=== PATIENT | female | born 1970 | race Caucasian/White ===

== ENCOUNTER 2021-03-16 15:03 | Outpatient (REF) | payer SELFPAY ==
[2021-03-16 17:47] LABS: MANUAL DIFF FLAG NO
[2021-03-16 17:52] LABS: Basophils Percent Auto 0.3 % (0-2); Eosinophils Absolute Auto 0.4 X10*3/uL (0.0-0.4); Eosinophils Percent Auto 4.6 % (0-4); Hematocrit 38.3 % (37-47); Hemoglobin 12.4 g/dl (12.0-16.0); Imm Gran Abs Auto 0.03 X10*3/uL (0.00-0.03); Imm Gran Pct Auto 0.3 % (0.0-0.4); Lymphocytes Absolute Auto 1.8 X10*3/uL (1.2-4.9); Lymphocytes Percent Auto 19.4 % (20-40); Mean Corpuscular HGB Conc 32.4 g/dl (31.0-35.0); Mean Corpuscular Hemoglobin 25.8 pg (27.0-33.0); Mean Corpuscular Volume 79.6 fL (80-98); Mean Platelet Volume 9.5 fL (9.4-12.3); Monocytes Absolute Auto 0.8 X10*3/uL (0.1-1.2); Monocytes Percent Auto 8.3 % (2-11); Neutrophils Absolute Auto 6.1 X10*3/uL (2.0-8.3); Neutrophils Percent Auto 67.1 % (45-73); Platelet Count 362 X10*3/uL (160-400); Red Blood Count 4.81 X10*6/uL (4.20-5.50); Red Cell Distribution Width 15.9 % (11.0-16.0); White Blood Count 9.1 X10*3/uL (4.8-10.8)
[2021-03-16 18:11] LABS: Anion Gap 13 (12-20); Blood Urea Nitrogen 20 mg/dL (9-16); Calcium 9.5 mg/dL (8.4-10.2); Carbon Dioxide 22 mmol/L (22-29); Chloride 108 mmol/L (96-108); Cholesterol 117 mg/dL; Creatinine Urine 91.54 mg/dL; Estimated Glomerular Filt Rate 23; HDL Cholesterol 44 mg/dL; Iron 59 mcg/dL (30-160); LDL Cholesterol Calculated 57 mg/dl; Magnesium 2.3 mg/dL (1.6-2.6); Microalbum/Creatinine Ratio Ur 223.9 ug/mg cr; Percent Iron Saturation 18 % (15-50); Phosphorus 2.8 mg/dL (2.7-4.5); Potassium 2.6 mmol/L (3.3-5.1); Sodium 140 mmol/L (135-145); Total Iron Binding Capacity 324 mcg/dL (228-428); Triglycerides 84 mg/dL; Unsaturated Iron Binding 265 ug/dL; Uric Acid 3.1 mg/dL (2.4-5.7)
[2021-03-16 18:21] LABS: Glucose Urine UA 250 MG/DL (NEG); Leukocyte Esterase Urine NEG (NEG); Nitrite Urine NEG (NEG); PH 6.5 (5.0-8.0); Specific Gravity - Urine 1.025 (1.005-1.025); Urine Blood 2+ (NEG); Urine Ketones NEG (NEG); Urine Protein 2+ MG/DL (NEG-TRACE)
[2021-03-16 18:24] LABS: Ferritin 169 ng/mL (10-250)
[2021-03-16 18:26] LABS: Appearance Urine HAZY; Color Urine YELLOW
[2021-03-16 18:40] LABS: Bacteria Urine TRACE /LPF; Mucus Urine 2+ /LPF; RBC Urine 0-2 /HPF (0); Squamous Epithelial Cell Urine 3+ /LPF; WBC Urine 0 /HPF (0-4)
[2021-03-21 06:31] LABS: Calcium (PTHI) 9.4 mg/dL (8.6-10.4); PTHI 40 pg/mL (14-64)
== END 2021-03-16 15:04 | disposition home or self-care (01) ==
LOC: HO.HMGCLDS 15:03
PROVIDERS: PCP Internal Medicine; Visit Provider Internal Medicine Nephrology
DX: I10 Essential (primary) hypertension (principal)
CPT/HCPCS: 36415; 80051; 80061; 81001; 82043; 82310; 82565; 82728; 83540; 83735; 83970; 84100; 84520; 84550; 85025

== ENCOUNTER 2023-11-17 11:10 | Outpatient (AMB) | payer OTHER, SELFPAY ==
--- NOTE | 2023-11-17 11:12 | AM.OFFWIN_ITS ---
Intake Vital Signs 11/17/23 11:18 Height 5 ft 2 in Weight 203 lb BMI 37.1 BP 114/82 Blood Pressure Location Lt brachial Position Sitting Pulse 98 Pulse Source Pulse Oximeter Temp 98.2 F Temp Source Oral Pulse Oximetry (%) 97 Oxygen Delivery Method Room Air Intake Visit Reasons: EP tingling in head UTI inflammation in legs Intake Note: Pt presents to the office today for c/o inflammation in her knees,legs,feet. She states she also has tingling in the top of her head. She states this all has been going on for the past year or longer. She also is questioning a UTI due to cloudiness. Patient Tobacco Use Status: Never used Tobacco Allergies No Known Allergies [No Known Allergies*] Allergy (Unverified 11/17/23 11:21) Environmental Allergies Allergy (Unknown, Uncoded 11/17/23 11:21) Difficulty Breathing Mold Allergy (Unknown, Uncoded 11/17/23 11:21) Difficulty Breathing mold Allergy (Unknown, Uncoded 11/17/23 11:21) Difficulty Breathing HPI HPI Comments History of Present Illness Details 53 y/o female patient who presents to [facility] in clinic with c/o Urinary symptoms. Pt has h/o CKD and currently being followed by [facility] Nephrology. Reports getting frequent UTIs due to her Kidney disease. Pt also c/o bilateral knee pain since June. Reports had bilateral small toes fracture , now this is causing her knees to hurt. [facility] Social History Patient Tobacco Use Status: Never used Tobacco Review of Systems Const All systems reviewed & are unremarkable except as noted in HPI and below Physical Exam Vital Signs: Last Vital Signs Temp 98.2 F 11/17/23 11:18 Pulse 98 11/17/23 11:18 BP 114/82 11/17/23 11:18 Pulse Ox 97 11/17/23 11:18 Oxygen Delivery Method Room Air 11/17/23 11:18 BMI result Body Mass Index 37.1 Const General: comfortable and no acute distress Nutritional Appearance: obese Orientation/consciousness: patient oriented x3 Neuro General: patient oriented x3, gait normal and moves all extremities Extrem Other: Patient is wearing tight pants and closed toe shoes with out discomfort. Bilateral knees normal, no swelling or tenderness. General: Yes normal to inspection and Yes full ROM Right lower extremity: knee Details: normal to inspection and normal ROM; no tenderness and no swelling Left lower extremity: knee Details: normal to inspection and normal ROM; no tenderness and no swelling Psych Speech and movement: Normal speech and movement present Results AMB Urinalysis, Automated UA Leukoctes 15 Bree/uL Last Edit by Alana Griffin CMA on 11/17/23 11:27 UA Nitrite Negative Last Edit by Alana Griffin CMA on 11/17/23 11:27 UA Urobilinogen 0.2 mg/dL Last Edit by Alana Griffin CMA on 11/17/23 11:27 UA Protein 100 mg/dL Last Edit by Alana Griffin CMA on 11/17/23 11:27 UA pH 6.0 Last Edit by Alana Griffin CMA on 11/17/23 11:27 UA Blood 80 Sabas/uL Last Edit by Alana Griffin CMA on 11/17/23 11:27 UA Specific [place] 1.015 Last Edit by Alana Griffin CMA on 11/17/23 11:27 UA Ketone Negative Last Edit by Alana Griffin CMA on 11/17/23 11:27 UA Bilirubin 0 mg/dL Last Edit by Alana Griffin CMA on 11/17/23 11:27 UA Glucose 500 mg/dL Last Edit by Alana Griffin CMA on 11/17/23 11:27 Results Reviewed Results Reviewed: Laboratory Last Values Urine pH (Auto) 6.0 11/17/23 11:26 Specific [place] (Auto) 1.015 11/17/23 11:26 Urine Protein (Auto) 100 mg/dL 11/17/23 11:26 Glucose (UA)(Auto) 500 mg/dL 11/17/23 11:26 Urine Ketones (Auto) Negative 11/17/23 11:26 Urine Blood (Auto) 80 [place]/uL 11/17/23 11:26 Urine Nitrite (Auto) Negative 11/17/23 11:26 Urine Bilirubin (Auto) 0 mg/dL 11/17/23 11:26 Urine Urobilinogen (Auto) 0.2 mg/dL 11/17/23 11:26 Leukocyte Esterase (Auto) 15 Bree/uL 11/17/23 11:26 Assessment & Plan Assessment & Plan (1) Urinary tract infection symptoms: Code(s): R39.9 - Unspecified symptoms and signs involving the genitourinary system Plan: - Sent urine for UA and culture - F/U with your Nephrology (2) Osteoarthritis of knees, bilateral: Code(s): M17.0 - Bilateral primary osteoarthritis of knee Qualifiers: Osteoarthritis type: unspecified Qualified Code(s): M17.0 - Bilateral primary osteoarthritis of knee Plan: No swelling or edema of both knees, non tender. Ordered PT F/U with PCP. Orders: Orders AMB Urinalysis Automated Today Z13.9 - Encounter for screening, unspecified UA CC w/rflx Micro + Cult Today R39.9 - Unspecified symptoms and signs involving the genitourinary system PT Evaluation and Treatment Today M17.0 - Bilateral primary osteoarthritis of knee Coding Level of Care Code Est Pt Level 3 (55726) Diagnoses Urinary tract infection symptoms R39.9 Osteoarthritis of both knees, unspecified osteoarthritis type M17.0 Osteoarthritis type: unspecified Time Spent (min) 15
[2023-11-17 11:18] VITALS: BP 114/82; PULSE 98; TEMP 36.8; O2SAT 97; BMI 37.1
== END 2023-11-17 11:56 | disposition home or self-care (01) ==
PROVIDERS: PCP Internal Medicine; Visit Provider Nurse Practitioner Family
DX: R39.9 Unspecified symptoms and signs involving the genitourinary system (principal); M17.0 Bilateral primary osteoarthritis of knee
CPT/HCPCS: 81003; 99213

== ENCOUNTER 2023-11-17 11:46 | Outpatient (REF) | payer OTHER, SELFPAY ==
[2023-11-17 13:20] LABS: Appearance Urine Cloudy; Color Urine Yellow; Glucose Urine UA 500 mg/dL (Negative); Leukocyte Esterase Urine Moderate (2+) (Negative); Nitrite Urine Positive (Negative); PH 6.5 (5.0-9.0); Specific Gravity - Urine 1.015 (1.005-1.025); UMIC TRIGGER UACC YES; Urine Blood Small (1+) (Negative); Urine Ketones Trace mg/dL (Negative); Urine Protein 100 (2+) mg/dL (Neg-Trace)
[2023-11-17 13:35] LABS: Bacteria Urine 4+ (None Seen); Hyaline Casts Urine 0-2 /LPF (0-2); RBC Urine 0-2 /HPF (0-2); UACC Culture Trigger YES; WBC Urine >50 /HPF (0-5)
== END 2023-11-17 11:47 | disposition home or self-care (01) ==
LOC: HO.LAB 11:46
PROVIDERS: Visit Provider Nurse Practitioner Family
DX: R39.9 Unspecified symptoms and signs involving the genitourinary system (principal)
CPT/HCPCS: 81001; 87086; 87088; 87186

== ENCOUNTER 2023-12-20 14:01 | Outpatient (AMB) | payer OTHER, SELFPAY ==
[2023-12-20 14:04] VITALS: BP 146/80; PULSE 87; O2SAT 100; BMI 36.3
--- NOTE | 2023-12-20 14:04 | A.OFFPC_ITS ---
Vital Signs 3 12/20/23 14:04 Height 5 ft 2 in Weight 198 lb 4 oz BMI 36.3 BP 146/80 H Blood Pressure Location Lt brachial Position Sitting Pulse 87 Pulse Source Pulse Oximeter Pulse Oximetry (%) 100 Oxygen Delivery Method Room Air Intake Visit Reasons: Re Est care Allergies No Known Allergies [No Known Allergies*] Allergy (Verified 12/20/23 14:04) Environmental Allergies Allergy (Unknown, Uncoded 11/17/23 11:21) Difficulty Breathing Mold Allergy (Unknown, Uncoded 11/17/23 11:21) Difficulty Breathing mold Allergy (Unknown, Uncoded 11/17/23 11:21) Difficulty Breathing Medication List - Last Reconciled 12/20/23 by Jacky Vallejo MD potassium chloride mEq PO sodium bicarbonate 20 mg PO BID Tobacco use date assessed: 12/20/23 Dental Screening Dental Screen Date: 12/20/23 Did you have a dental visit in the last 12 months?: No Did you have a dental problem in the last 6 months where you did not have access to dental care?: No Was dental information given to patient?: No HPI Re Est care 2 HPI0 Details Patient is a 50-year-old female who was last seen in 2017 came in today for reestablish care. Patient have chronic kidney disease, she saw Nephrology Dr. Menon in 2020, also after her visit in 2017. 2017 her creatinine was 1.68 and it was 2.26 at her labs March of 2021 She verbalized to continued to take Cozaar and hydrochlorothiazide She has longstanding history of hypertension Her blood pressure was 132/64 at Nephrology office with pulse of 103 and pulse ox of 97% She also have albuminuria She was diagnosed with chronic kidney disease stage 4 in 2020 Today her blood pressure is 146/80 Patient says that she has a blood pressure monitor at home and she is checking it She will bring the monitor with her at her next visit so we can calibrate it. Next appointment with Dr. Menon is not until March, last time she saw him was September of this year I do not have that consultation report. I have ordered labs to be done fasting Mammogram order placed she is due Patient also is requesting a dietitian consultation, we will address that Last time she had labs in September her GFR was 28 She also need an appointment for eye exam for regular checkup BMI is elevated patient is trying to lose weight She is having symptom of acid reflux, and took Prilosec with some relief but she has not taking it regularly I have sent omeprazole script patient was instructed to start taking 1 at night with a sip of water, and controlled the diet avoid spicy and fried food Complaining of pain both knees She also fell in June and then again in August tripped and injured her does which were very painful initially but now feeling better I have ordered x-rays of her knees and her feet to further evaluate She has not order for physical therapy for her knee pain and she will book the appointment She will return in 2 or 3 weeks for physical exam [facility] Social History Housing: House Patient Tobacco Use Status: Never used Tobacco e-Cigarette/Vaping Use: Never Used service: No Current occupational status: employed Current occupational exposures/hazards: No Cognitive needs: No Hearing needs: No Vision needs: No Questionnaire PHQ-9 Over the last 2 weeks, how often have you been bothered by any of the following problems? 1. Little interest or pleasure in doing things: not at all 2. Feeling down, depressed, or hopeless: not at all 3. Trouble falling or staying asleep, or sleeping too much: nearly every day 4. Feeling tired or having little energy: several days 5. Poor appetite or overeating: several days 6. Feeling bad about yourself - or that you are a failure or have let yourself or your family down: not at all 7. Trouble concentrating on things, such as reading the newspaper or watching television: several days 8. Moving or speaking so slowly that other people could have noticed. Or the opposite - being so fidgety or restless that you have been moving around a lot more than usual: not at all 9. Thoughts that you would be better off or of hurting yourself in some way: not at all Total score: 6 Depression Screening Interpretation: Negative Depression Screening Done: Yes 04017 - PHQ-9 Billing: Yes Source: Developed by Drs. Miah Hanley, Asia Norman, Gabriel Thorpe and colleagues, with an educational reza from [employer]. Thrive Questionnaire Date Thrive assessed: 12/20/23 I am a: Patient What is your living situation today?: I have a steady place to live Within the past 12 months, did the food you bought not last and you didn't have the money to get more?: Never true Within the past 12 months, did you worry whether your food would run out before you got money to buy more?: Never true Do you have trouble paying for medicines?: No Do you have trouble getting transportation to medical appointments?: No Do you have trouble paying your heating and electricity bill?: No Do you have trouble taking care of your child, family member or friend?: No Do you have trouble with day-to-day activities such as bathing, preparing meals, shopping, managing finances, etc.?: No Are you currently unemployed and looking for a job?: No Are you interested in more education?: No Please select the resources that you would like help with: None Currently or been in a relationship where the following occur: no concerns reported THRIVE Score: 0 AUDIT C Alcohol Use Questionnaire (AUDIT-C) 1. How often do you have a drink containing alcohol?: Never 3. How often do you have six or more drinks on one occasion?: Never Total Score: 0 Score Reviewed/Action Taken: Yes JESUS-7 AMB Questionnaire JESUS-7 Date JESUS - 7 assessed: 12/20/23 Feeling nervous, anxious, or on edge: 0 = Not at all Not being able to stop or control worryin = Not at all Worrying too much about different things: 0 = Not at all Trouble relaxin = Not at all Being so restless that it is hard to sit still: 0 = Not at all Becoming easily annoyed or irritable: 0 = Not at all Feeling afraid as if something awful might happen: 0 = Not at all Total JESUS-7 score (0-4 normal; 5-9 mild; 10-14 moderate; 15-21 severe): 0 Source: Developed by Drs. Miah Hanley, Asia Norman, Gabriel Thorpe and colleagues, with an educational reza from [employer]. JESUS-7 Assessment Billing JESUS-7 Assessment Tool: JESUS-7 Assessment 78943 Review of Systems Const Denies chills and Denies fever(s) ENT Denies epistaxis and Denies nasal discharge Card Denies chest pain Resp Denies chest congestion, Denies cough and Denies hemoptysis GI Denies diarrhea and Denies nausea Skin/Breast Denies rash Neuro Reports no additional complaints Psych Reports no additional complaints Endo Reports no additional complaints Physical exam (Primary Care) Vital Signs: Last Vital Signs Pulse 87 12/20/23 14:04 BP 146/80 H 12/20/23 14:04 Pulse Ox 100 12/20/23 14:04 Oxygen Delivery Method Room Air 12/20/23 14:04 BMI result Body Mass Index 36.3 Tobacco/Smoking Status: Tobacco use Status Tobacco use date assessed 12/20/23 12/20/23 14:11 Patient Tobacco Use Status Never used Tobacco 12/20/23 14:11 e-Cigarette/Vaping Use Never Used 12/20/23 14:11 PHQ-9: PHQ-9 Score PHQ-9: Total score 6 12/20/23 15:17 Depression Screening Interpretation: Negative Thrive Assessment: Date of Thrive Assessment Date Thrive assessed 12/20/23 12/20/23 14:46 Currently or been in a relationship where the following occur: no concerns reported Const General: cooperative, comfortable and no acute distress Orientation/consciousness: patient oriented x3 HENMT Head: Yes normocephalic Eyes General: appearance normal, both eyes and all related structures Neck Neck: Yes supple Resp Effort & Inspection: normal respiratory effort, no cough and no stridor Cardio Rhythm: regular rhythm Heart sounds: S1 normal heart sound present and S2 normal heart sound present Skin General skin exam: turgor normal Neuro General: patient oriented x3, tone normal and moves all extremities Extrem Right lower extremity: no edema Left lower extremity: no edema Ankle/foot/toe images: 2 1. Pain with palpation 2. Pain with palpation 3 toes Assessment and Plan Assessment & Plan (1) Establishing care with new doctor, encounter for: Code(s): Z76.89 - Persons encountering health services in other specified circumstances (2) Chronic kidney disease, stage 4 (severe): Code(s): N18.4 - Chronic kidney disease, stage 4 (severe) (3) Chronic hypokalemia: Code(s): E87.6 - Hypokalemia (4) Acidemia: Code(s): E87.20 - Acidosis, unspecified (5) Bilateral knee pain: Code(s): M25.561 - Pain in right knee; M25.562 - Pain in left knee Qualifiers: Chronicity: chronic Qualified Code(s): M25.561 - Pain in right knee; M25.562 - Pain in left knee; G89.29 - Other chronic pain (6) Toe injury: Code(s): S99.929A - Unspecified injury of unspecified foot, initial encounter Qualifiers: Encounter type: sequela Laterality: unspecified laterality Qualified Code(s): S99.929S - Unspecified injury of unspecified foot, sequela (7) Chronic GERD: Code(s): K21.9 - Gastro-esophageal reflux disease without esophagitis (8) Blurring of vision: Code(s): H53.8 - Other visual disturbances (9) Obesity due to excess calories: Code(s): E66.09 - Other obesity due to excess calories Qualifiers: Obesity classification: adult class 2 (BMI 35 - 39.9) Serious obesity comorbidity presence: with serious comorbidity Body mass index: BMI 36.0-36.9 Qualified Code(s): E66.01 - Morbid (severe) obesity due to excess calories; Z68.36 - Body mass index [BMI] 36.0-36.9, adult (10) Prehypertension: Code(s): R03.0 - Elevated blood-pressure reading, without diagnosis of hypertension (11) Decreased GFR: Code(s): R94.4 - Abnormal results of kidney function studies Plan Patient is a 50-year-old female who was last seen in 2018 came in today for reestablish care. Patient have chronic kidney disease, she saw Nephrology Dr. Menon in 2020, also after her visit in 2017. 2018 her creatinine was 1.68 and it was 2.26 at her labs March of 2021 She verbalized to continued to take Cozaar and hydrochlorothiazide She has longstanding history of hypertension Her blood pressure was 132/64 at Nephrology office with pulse of 103 and pulse ox of 97% She also have albuminuria She was diagnosed with chronic kidney disease stage 4 in 2020 Today her blood pressure is 146/80 Patient says that she has a blood pressure monitor at home and she is checking it She will bring the monitor with her at her next visit so we can calibrate it. Next appointment with Dr. Menon is not until March, last time she saw him was September of this year I do not have that consultation report. I have ordered labs to be done fasting Mammogram order placed she is due Patient also is requesting a dietitian consultation, we will address that Last time she had labs in September her GFR was 28 She also need an appointment for eye exam for regular checkup BMI is elevated patient is trying to lose weight She is having symptom of acid reflux, and took Prilosec with some relief but she has not taking it regularly I have sent omeprazole script patient was instructed to start taking 1 at night with a sip of water, and controlled the diet avoid spicy and fried food Complaining of pain both knees She also fell in June and then again in August tripped and injured her does which were very painful initially but now feeling better I have ordered x-rays of her knees and her feet to further evaluate She has not order for physical therapy for her knee pain and she will book the appointment She will return in 2 or 3 weeks for physical exam Orders: Orders 2 Complete Blood Count Auto Diff Today E66.09 - Other obesity due to excess calories, E87.20 - Acidosis, unspecified, E87.6 - Hypokalemia, H53.8 - Other visual disturbances, K21.9 - Gastro-esophageal reflux disease without esophagitis, M25.561 - Pain in right knee, M25.562 - Pain in left knee, N18.4 - Chronic kidney disease, stage 4 (severe), R03.0 - Elevated blood-pressure reading, without diagnosis of hypertension, R94.4 - Abnormal results of kidney function studies, S99.929A - Unspecified injury of unspecified foot, initial encounter, Z76.89 - Persons encountering health services in other specified circumstances XR knee LT 2V Today M25.561 - Pain in right knee, M25.562 - Pain in left knee XR toe LT min 2V Today S99.929A - Unspecified injury of unspecified foot, initial encounter XR toe RT min 2V Today S99.929A - Unspecified injury of unspecified foot, initial encounter Comprehensive [place]. Panel Fast Today E66.09 - Other obesity due to excess calories, E87.20 - Acidosis, unspecified, E87.6 - Hypokalemia, H53.8 - Other visual disturbances, K21.9 - Gastro-esophageal reflux disease without esophagitis, M25.561 - Pain in right knee, M25.562 - Pain in left knee, N18.4 - Chronic kidney disease, stage 4 (severe), R03.0 - Elevated blood-pressure reading, without diagnosis of hypertension, R94.4 - Abnormal results of kidney function studies, S99.929A - Unspecified injury of unspecified foot, initial encounter, Z76.89 - Persons encountering health services in other specified circumstances Lipid Panel Today E66.09 - Other obesity due to excess calories, E87.20 - Acidosis, unspecified, E87.6 - Hypokalemia, H53.8 - Other visual disturbances, K21.9 - Gastro-esophageal reflux disease without esophagitis, M25.561 - Pain in right knee, M25.562 - Pain in left knee, N18.4 - Chronic kidney disease, stage 4 (severe), R03.0 - Elevated blood-pressure reading, without diagnosis of hypertension, R94.4 - Abnormal results of kidney function studies, S99.929A - Unspecified injury of unspecified foot, initial encounter, Z76.89 - Persons encountering health services in other specified circumstances Vitamin D 25-OH (D2 and D3) Today E66.09 - Other obesity due to excess calories, E87.20 - Acidosis, unspecified, E87.6 - Hypokalemia, H53.8 - Other visual disturbances, K21.9 - Gastro-esophageal reflux disease without esophagitis, M25.561 - Pain in right knee, M25.562 - Pain in left knee, N18.4 - Chronic kidney disease, stage 4 (severe), R03.0 - Elevated blood-pressure reading, without diagnosis of hypertension, R94.4 - Abnormal results of kidney function studies, S99.929A - Unspecified injury of unspecified foot, initial encounter, Z76.89 - Persons encountering health services in other specified circumstances Vitamin B12 Today E66.09 - Other obesity due to excess calories, E87.20 - Acidosis, unspecified, E87.6 - Hypokalemia, H53.8 - Other visual disturbances, K21.9 - Gastro-esophageal reflux disease without esophagitis, M25.561 - Pain in right knee, M25.562 - Pain in left knee, N18.4 - Chronic kidney disease, stage 4 (severe), R03.0 - Elevated blood-pressure reading, without diagnosis of hypertension, R94.4 - Abnormal results of kidney function studies, S99.929A - Unspecified injury of unspecified foot, initial encounter, Z76.89 - Persons encountering health services in other specified circumstances TSH reflex Free T4 Today E66.09 - Other obesity due to excess calories, E87.20 - Acidosis, unspecified, E87.6 - Hypokalemia, H53.8 - Other visual disturbances, K21.9 - Gastro-esophageal reflux disease without esophagitis, M25.561 - Pain in right knee, M25.562 - Pain in left knee, N18.4 - Chronic kidney disease, stage 4 (severe), R03.0 - Elevated blood-pressure reading, without diagnosis of hypertension, R94.4 - Abnormal results of kidney function studies, S99.929A - Unspecified injury of unspecified foot, initial encounter, Z76.89 - Persons encountering health services in other specified circumstances Magnesium Today E66.09 - Other obesity due to excess calories, E87.20 - Acidosis, unspecified, E87.6 - Hypokalemia, H53.8 - Other visual disturbances, K21.9 - Gastro-esophageal reflux disease without esophagitis, M25.561 - Pain in right knee, M25.562 - Pain in left knee, N18.4 - Chronic kidney disease, stage 4 (severe), R03.0 - Elevated blood-pressure reading, without diagnosis of hypertension, R94.4 - Abnormal results of kidney function studies, S99.929A - Unspecified injury of unspecified foot, initial encounter, Z76.89 - Persons encountering health services in other specified circumstances MM tomosynthesis screening BI Today Z12.31 - Encounter for screening mammogram for malignant neoplasm of breast XR knee RT 2V Today M25.561 - Pain in right knee, M25.562 - Pain in left knee Referrals 2 Ophthalmology Referral H53.8 - Other visual disturbances Coding Level of Care Code New Pt Level 5 (75922) Diagnoses Establishing care with new doctor, encounter for Z76. Chronic kidney disease, stage 4 (severe) N18.4 Chronic hypokalemia E87.6 Acidemia E87.20 Chronic pain of both knees M25.561; M25.562; G89.29 Chronicity: chronic Injury of toe, unspecified laterality, sequela S99.929S Encounter type: sequela Laterality: unspecified laterality Chronic GERD K21.9 Blurring of vision H53.8 Class 2 severe obesity due to excess calories with serious comorbidity and body mass index (BMI) of 36.0 to 36.9 in adult E66.01; Z68.36 Obesity classification: adult class 2 (BMI 35 - 39.9) Serious obesity comorbidity presence: with serious comorbidity Body mass index: BMI 36.0-36.9 Prehypertension R03.0 Decreased GFR R94.4 Additional Codes JESUS-7 Assessment Billing - JESUS-7 Assessment Tool: JESUS-7 Assessment [id number] ([id number]) Comment More than 60 minutes spent in care of this patient
== END 2023-12-20 15:35 | disposition home or self-care (01) ==
PROVIDERS: PCP Internal Medicine; Visit Provider Internal Medicine
DX: N18.4 Chronic kidney disease, stage 4 (severe) (principal); E66.01 Morbid (severe) obesity due to excess calories; Z68.36 Body mass index [BMI] 36.0-36.9, adult; E87.6 Hypokalemia; K21.9 Gastro-esophageal reflux disease without esophagitis; E87.20 Acidosis, unspecified; M25.561 Pain in right knee; M25.562 Pain in left knee; R94.4 Abnormal results of kidney function studies; G89.29 Other chronic pain; H53.8 Other visual disturbances; R03.0 Elevated blood-pressure reading, without diagnosis of hypertension
CPT/HCPCS: 99215; 99417

== ENCOUNTER 2024-01-10 10:33 | Outpatient (REF) | payer OTHER, SELFPAY ==
--- NOTE | ~2024-01-10 | XR_ITS ---
EXAMINATION: XR TOES, RIGHT CLINICAL INFORMATION: Right second toe pain COMPARISON: None available. TECHNIQUE: 3 views of the right toes were obtained. FINDINGS: There are no fractures or dislocations. No joint effusion is identified. No bone, joint or soft tissue abnormality is demonstrated. XR/XR toe RT min 2V IMPRESSION: Unremarkable examination.
--- NOTE | ~2024-01-10 | XR_ITS ---
EXAMINATION: XR KNEE, LEFT CLINICAL INFORMATION: Left knee pain COMPARISON: 03/02/1960 TECHNIQUE: AP and lateral views of the left knee. FINDINGS: No fracture or joint effusion. Alignment is anatomic. Joint spaces are maintained. No abnormal soft tissue calcification. XR/XR knee LT 2V IMPRESSION: Normal left knee.
--- NOTE | ~2024-01-10 | XR_ITS ---
EXAMINATION: XR KNEE, RIGHT CLINICAL INFORMATION: Right knee pain COMPARISON: None available. TECHNIQUE: AP and lateral views of the right knee. FINDINGS: No fracture or joint effusion. Alignment is anatomic. Joint spaces are maintained. No abnormal soft tissue calcification. XR/XR knee RT 2V IMPRESSION: Normal right knee.
--- NOTE | ~2024-01-10 | XR_ITS ---
EXAMINATION: XR TOES, LEFT CLINICAL INFORMATION: Left second toe. COMPARISON: None available. TECHNIQUE: 3 views of the left toes were obtained. FINDINGS: There are no fractures or dislocations. No joint effusion is identified. No bone, joint or soft tissue abnormality is demonstrated. XR/XR toe LT min 2V IMPRESSION: Unremarkable examination.
[2024-01-10 13:22] LABS: MANUAL DIFF FLAG NO
[2024-01-10 13:35] LABS: Basophils Percent Auto 0.4 % (0-2); Eosinophils Absolute Auto 0.2 X10*3/uL (0.0-0.4); Eosinophils Percent Auto 2.5 % (0-4); Hematocrit 47.7 % (37.0-47.0); Hemoglobin 14.8 g/dl (12.0-16.0); Imm Gran Abs Auto 0.02 X10*3/uL (0.00-0.03); Imm Gran Pct Auto 0.3 % (0.0-0.4); Lymphocytes Absolute Auto 2.5 X10*3/uL (1.2-4.9); Lymphocytes Percent Auto 32.8 % (20-40); Mean Corpuscular Hemoglobin 25.3 pg (27.0-33.0); Mean Corpuscular Volume 81.5 fL (80.0-98.0); Mean Platelet Volume 9.6 fL (9.4-12.3); Monocytes Absolute Auto 0.5 X10*3/uL (0.1-1.2); Neutrophils Absolute Auto 4.4 x10*3/uL (2.0-8.3); Platelet Count 389 X10*3/uL (160-400); Red Blood Count 5.85 X10*6/uL (4.20-5.50); Red Cell Distribution Width 19.3 % (11.0-16.0); White Blood Count 7.8 X10*3/uL (4.8-10.8)
[2024-01-10 13:48] LABS: Alanine Aminotransferase 31 U/L (0-31); Albumin Level 4.5 g/dL (3.5-5.0); Alkaline Phosphatase 213 U/L (39-117); Anion Gap 10 (12-20); Aspartate Amino Transferase 25 U/L (5-31); Bilirubin Total 0.7 mg/dL (0.0-1.0); Blood Urea Nitrogen 18 mg/dL (9-16); Calcium 10.1 mg/dL (8.4-10.2); Carbon Dioxide 19 mmol/L (22-29); Chloride 114 mmol/L (96-108); Cholesterol 142 mg/dL (<200); Estimated Glomerular Filt Rate 24; Glucose Fasting 101 mg/dL (60-99); HDL Cholesterol 50 mg/dL (>40); LDL Cholesterol Calculated 77 mg/dL (<100); Magnesium 2.7 mg/dL (1.6-2.6); Potassium 3.4 mmol/L (3.3-5.1); Sodium 140 mmol/L (135-145); Total Protein 7.5 g/dL (6.5-8.0); Triglycerides 77 mg/dL (<150)
[2024-01-10 14:03] LABS: TSH reflex Free T4 2.01 uIU/mL (0.32-4.0)
[2024-01-10 14:09] LABS: Vitamin B12 458 pg/mL (200-900)
[2024-01-14 15:09] LABS: Vitamin D 25-OH, D2 <4 ng/mL; Vitamin D 25-OH, D3 21 ng/mL; Vitamin D 25-OH, Total 21 ng/mL (30-100)
== END 2024-01-10 10:34 | disposition home or self-care (01) ==
LOC: HO.HMGCX 10:33
PROVIDERS: PCP Internal Medicine; Visit Provider Internal Medicine
DX: N18.4 Chronic kidney disease, stage 4 (severe) (principal); E87.6 Hypokalemia; E87.20 Acidosis, unspecified; M25.561 Pain in right knee; M25.562 Pain in left knee; S99.929A Unspecified injury of unspecified foot, initial encounter; K21.9 Gastro-esophageal reflux disease without esophagitis; H53.8 Other visual disturbances; E66.09 Other obesity due to excess calories; R03.0 Elevated blood-pressure reading, without diagnosis of hypertension; R94.4 Abnormal results of kidney function studies; X58.XXXA Exposure to other specified factors, initial encounter; Y93.9 Activity, unspecified; Y92.9 Unspecified place or not applicable; Y99.9 Unspecified external cause status; Z76.89 Persons encountering health services in other specified circumstances
CPT/HCPCS: 36415; 73560; 73660; 80053; 80061; 82306; 82607; 83735; 84443; 85025

== ENCOUNTER 2024-01-12 11:51 | Outpatient (AMB) | payer OTHER, SELFPAY ==
[2024-01-12 12:14] VITALS: BP 140/88; PULSE 72; O2SAT 98; BMI 36.2
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
== END 2024-01-12 12:52 | disposition home or self-care (01) ==
PROVIDERS: PCP Internal Medicine; Visit Provider Internal Medicine
DX: Z00.01 Encounter for general adult medical examination with abnormal findings (principal); E66.01 Morbid (severe) obesity due to excess calories; M54.50 Low back pain, unspecified; N18.4 Chronic kidney disease, stage 4 (severe); G89.29 Other chronic pain; M25.561 Pain in right knee; M25.562 Pain in left knee; K21.9 Gastro-esophageal reflux disease without esophagitis; Z68.36 Body mass index [BMI] 36.0-36.9, adult
CPT/HCPCS: 99213; 99396

== ENCOUNTER 2024-01-12 12:56 | Outpatient (REF) | payer OTHER, SELFPAY ==
--- NOTE | ~2024-01-12 | XR_ITS ---
EXAMINATION: XR THORACOLUMBAR SPINE CLINICAL INFORMATION: History cephalgia COMPARISON: None available. TECHNIQUE: AP and lateral view of the thoracic spine FINDINGS: The vertebral alignment is normal. No intrinsic bony abnormality. The disc heights and neural foramina are well maintained. The endplates and posterior elements are normal. No fracture or subluxation. The surrounding prevertebral soft tissues are unremarkable. XR/XR thoracic spine 2V IMPRESSION: Unremarkable exam.
--- NOTE | ~2024-01-12 | XR_ITS ---
EXAMINATION: XR LUMBOSACRAL SPINE CLINICAL INFORMATION: Low back pain COMPARISON: None available. TECHNIQUE: Three views of the lumbosacral spine. FINDINGS: The vertebral bodies and posterior elements are normal. The disc spaces are preserved and the vertebral alignment is normal. The paraspinal soft tissues are normal. XR/XR lumbar spine 2-3V IMPRESSION: Unremarkable examination.
== END 2024-01-12 12:57 | disposition home or self-care (01) ==
LOC: HO.HMGCX 12:56
PROVIDERS: PCP Internal Medicine; Visit Provider Internal Medicine
DX: M54.9 Dorsalgia, unspecified (principal)
CPT/HCPCS: 72070; 72100

== ENCOUNTER 2024-02-06 15:46 | Outpatient (REF) | payer OTHER, SELFPAY ==
--- NOTE | ~2024-02-06 | MM_ITS ---
EXAMINATION: MM SCREENING DIGITAL BREAST TOMOSYNTHESIS, BILATERAL CLINICAL INFORMATION: Screening. Asymptomatic. COMPARISON: Mammography: This study is compared with the most recent previous mammogram dating back to 2014. TECHNIQUE: Digital breast tomosynthesis is performed in both the craniocaudal and mediolateral oblique views along with computer-aided detection (CAD). Synthesized 2D images are generated from the tomosynthesis. FINDINGS: The breasts are almost entirely fatty (ACR BI-RADS breast composition Category a). There are no significant masses, abnormal calcifications, or other abnormalities. MM/MM tomosynthesis screening BI IMPRESSION: No mammographic evidence of malignancy. ASSESSMENT: BI-RADS BI-RADS 1 - Negative RECOMMENDATION: Routine annual mammography screening. 1 year F/U This examination should not preclude the clinical evaluation of a suspicious palpable abnormality. This patient's information was entered into a reminder system with a target due date for their next mammogram.
== END 2024-02-06 15:47 | disposition home or self-care (01) ==
LOC: HO.MAMMO 15:46
PROVIDERS: PCP Internal Medicine; Visit Provider Internal Medicine
DX: Z12.31 Encounter for screening mammogram for malignant neoplasm of breast (principal)
CPT/HCPCS: 77063; 77067

== ENCOUNTER → 2024-02-06 16:00 | Outpatient (BNV) | payer OTHER, SELFPAY | PROVIDERS: PCP Internal Medicine; Visit Provider Radiology Diagnostic Radiology | DX: Z12.31 Encounter for screening mammogram for malignant neoplasm of breast (principal) | CPT/HCPCS: 77063; 77067 ==

== ENCOUNTER 2024-08-07 12:58 | Outpatient (REF) | payer OTHER, SELFPAY ==
--- OUTSIDE RECORDS SUMMARY | 2024-08-07 15:45 | XMS_ITS | Encounter Summary ---
Author Organization [facility] Address [address] [facility] 200 [place] [address] Phone Care Team Providers Care Adult Basic Studies Teacher Name Role Phone Jacky Vallejo MD Primary Care Provider [phone] Encounter Details Date Type Department Care Team ([facility] st Contact Info) Description 08/01/2022 Telephone [facility] [address] [facility] [address] [place] [address] Bryson Menon MD 3554 [facility] 204 [place] [phone] Social History Tobacco Use Types Packs/Day Years [...] for her. Please call him back at [phone] Thank you documented in this encounter Plan of Treatment Upcoming Encounters Date Type Department Care Team (Late st Contact Info) Description 10/03/2024 2:00 PM EDT Office [facility] [address] [place] [address] Bryson Menon MD 5[address] [facility] [address] [place] [address] documented as of this encounter Visit Diagnoses Not on filedocumented in this encounter Care Teams Adult Basic Studies Teacher Relationship Specialty Start Date End Date Jacky Vallejo MD [facility] [place] [address] PCP - General 07/20/20 10/02/23 documented as of this encounter
--- OUTSIDE RECORDS SUMMARY | 2024-08-07 15:45 | XMS_ITS | Clinical Summary ---
Author Organization [facility] Address [address] [place] [address] Care Team Providers Care Sole Leveling Machine Operator Name Role Phone Unavailable Primary Care Provider [...]
--- OUTSIDE RECORDS SUMMARY | 2024-08-07 15:45 | XMS_ITS | Clinical Summary ---
Author Organization [facility] Address [address] [facility] [address] [address] [place] [address] Phone Care Team Providers Care Garden Tractor Mechanic Name Role Phone Unavailable Primary Care Provider [...] 07/04/2024 Refill [facility] [address] [place] [phone] Bryson Menon MD from Last 3 Months [...] Visit [facility] [address] [place] [address] Bryson Menon MD [address] [facility] 204 [place] [address] Health Maintenance Due Date Last [...]
--- OUTSIDE RECORDS SUMMARY | 2024-08-07 15:45 | XMS_ITS | Encounter Summary ---
Author Organization [facility] Address [address] [facility] [address] [place] [address] Phone Care Team Providers Care Material Carrier Name Role Phone Jacky Vallejo MD Primary Care Provider [phone] Encounter Details Date Type Department Care Team ([facility] Contact Info) Description 08/01/2022 Telephone [facility] [address] [employer]ith [facility] [address] [place] [address] Bryson Menon MD [address] [facility] [address] [place] [address] Social History Tobacco Use Types Packs/Day Years [...] call him once done thank you. CB# [phone] documented in this encounter Plan of Treatment Upcoming Encounters Date Type Department Care Team ([facility] Contact Info) Description 10/03/2024 2:00 PM EDT Office [facility] [address] [place] [address] Bryson Menon MD [address] [facility] [address] [place] [address] documented as of this encounter Visit Diagnoses Not on filedocumented in this encounter Care Teams Material Carrier Relationship Specialty Start Date End Date Jacky Vallejo MD [facility] [place] [address] PCP - General 07/20/20 10/02/23 documented as of this encounter
--- OUTSIDE RECORDS SUMMARY | 2024-08-07 15:45 | XMS_ITS | Encounter Summary ---
Author Organization [facility] Address [address] [facility] 200 [place] [address] Phone Care Team Providers Care Adult Neurologist Name Role Phone Jacky Vallejo MD Primary Care Provider [phone] Reason for Visit * Reason Comments Med Refill Encounter Details Date Type Department Care Team (Late Contact Info) Description 10/17/2020 Refill [facility] [address] [facility] [address] [place] [address] Bryson Menon MD [address]30 [facility] 204 [place] [address] Social History Tobacco Use Types [...] Visit [facility] [address] [place] [address] Bryson Menon MD 1342 [facility] 204 [place] [address] documented as of this encounter Visit Diagnoses Not on filedocumented in this encounter Care Teams Adult Neurologist Relationship Specialty Start Date End Date Jacky Vallejo MD [place] [address] PCP - General 07/20/20 10/02/23 documented as of this encounter
[2024-08-07 16:32] LABS: MANUAL DIFF FLAG NO
[2024-08-07 16:48] LABS: Basophils Percent Auto 0.5 % (0-2); Eosinophils Absolute Auto 0.2 X10*3/uL (0.0-0.4); Eosinophils Percent Auto 2.7 % (0-4); Hematocrit 46.9 % (37.0-47.0); Hemoglobin 14.4 g/dl (12.0-16.0); Imm Gran Abs Auto 0.02 X10*3/uL (0.00-0.03); Imm Gran Pct Auto 0.2 % (0.0-0.4); Lymphocytes Absolute Auto 2.2 X10*3/uL (1.2-4.9); Lymphocytes Percent Auto 27.1 % (20-40); Mean Corpuscular HGB Conc 30.7 g/dl (31.0-35.0); Mean Corpuscular Hemoglobin 25.4 pg (27.0-33.0); Mean Corpuscular Volume 82.7 fL (80.0-98.0); Mean Platelet Volume 9.8 fL (9.4-12.3); Monocytes Absolute Auto 0.5 X10*3/uL (0.1-1.2); Monocytes Percent Auto 5.9 % (2-11); Neutrophils Absolute Auto 5.2 x10*3/uL (2.0-8.3); Neutrophils Percent Auto 63.6 % (45-73); Platelet Count 328 X10*3/uL (160-400); Red Blood Count 5.67 X10*6/uL (4.20-5.50); Red Cell Distribution Width 18.3 % (11.0-16.0); White Blood Count 8.2 X10*3/uL (4.8-10.8)
[2024-08-07 17:10] LABS: Alanine Aminotransferase 35 U/L (0-31); Albumin Level 4.3 g/dL (3.5-5.0); Alkaline Phosphatase 218 U/L (39-117); Anion Gap 9 (12-20); Aspartate Amino Transferase 31 U/L (5-31); Bilirubin Total 0.4 mg/dL (0.0-1.0); Blood Urea Nitrogen 18 mg/dL (9-16); Calcium 9.3 mg/dL (8.4-10.2); Carbon Dioxide 16 mmol/L (22-29); Chloride 118 mmol/L (96-108); Estimated Glomerular Filt Rate 26; Glucose Random 91 mg/dL (60-115); Potassium 3.5 mmol/L (3.3-5.1); Sodium 139 mmol/L (135-145); Total Protein 7.4 g/dL (6.5-8.0)
[2024-08-07 17:25] LABS: TSH reflex Free T4 1.76 uIU/mL (0.32-4.0)
[2024-08-07 17:27] LABS: Appearance Urine Cloudy; Color Urine Yellow; Glucose Urine UA 500 mg/dL (Negative); Leukocyte Esterase Urine Negative (Negative); Nitrite Urine Negative (Negative); Specific Gravity - Urine 1.025 (1.005-1.025); UMIC TRIGGER UACC YES; Urine Blood Moderate (2+) (Negative); Urine Ketones Trace mg/dL (Negative); Urine Protein 300 (3+) mg/dL (Neg-Trace)
[2024-08-07 17:27] LABS: Vitamin B12 374 pg/mL (200-900)
[2024-08-07 18:01] LABS: Bacteria Urine 1+ (None Seen); Granular Casts Urine Present; RBC Urine 0-2 /HPF (0-2); WBC Urine 0-5 /HPF (0-5)
[2024-08-08 21:53] LABS: LDL Cholesterol Direct 80 mg/dL (<100)
[2024-08-11 16:13] LABS: Vitamin D 25-OH, D2 <4 ng/mL; Vitamin D 25-OH, D3 23 ng/mL; Vitamin D 25-OH, Total 23 ng/mL (30-100)
== END 2024-08-07 12:59 | disposition home or self-care (01) ==
LOC: HO.HMGCLDS 12:58
PROVIDERS: PCP Internal Medicine; Referring Provider Internal Medicine Nephrology; Visit Provider Internal Medicine
DX: R10.11 Right upper quadrant pain (principal); N18.4 Chronic kidney disease, stage 4 (severe); E66.01 Morbid (severe) obesity due to excess calories; Z68.36 Body mass index [BMI] 36.0-36.9, adult
CPT/HCPCS: 36415; 80053; 81001; 81003; 82306; 82607; 83721; 84443; 85025; 96127

== ENCOUNTER 2024-08-07 12:58 | Outpatient (AMB) | payer OTHER, SELFPAY ==
--- NOTE | 2024-08-07 13:03 | MHC.PC.OV ---
Vital Signs 08/07/24 13:04 Height 5 ft 2 in Weight 199 lb 6 oz BMI 36.5 BP 138/82 Blood Pressure Location Lt brachial Position Sitting Pulse 78 Pulse Source Pulse Oximeter Pulse Oximetry (%) 98 Oxygen Delivery Method Room Air Intake Visit Reasons: Pain in abdomen Allergies No Known Allergies [No Known Allergies*] Allergy (Verified 08/07/24 13:04) Environmental Allergies Allergy (Unknown, Uncoded 11/17/23 11:21) Difficulty Breathing Mold Allergy (Unknown, Uncoded 11/17/23 11:21) Difficulty Breathing mold Allergy (Unknown, Uncoded 11/17/23 11:21) Difficulty Breathing Medication List - Last Reconciled 08/07/24 by Jacky Vallejo MD cholecalciferol (vitamin D3) 50 mcg PO DAILY omeprazole 20 mg PO DAILY potassium chloride mEq PO sodium bicarbonate 20 mg PO BID Tobacco use date assessed: 08/07/24 Dental Screening Dental Screen Date: 08/07/24 Did you have a dental visit in the last 12 months?: Yes Did you have a dental problem in the last 6 months where you did not have access to dental care?: No Was dental information given to patient?: Patient has dentist HPI Pain in abdomen HPI Details - The patient is a 54-year-old female presenting with abdominal pain - She describes the abdominal pain as persistent since before May, worsening when lying on her side and after consuming heavy meals, - Additionally, she reports unusual burning, wbbk-evr-byrugmh sensation across her forehead and in her hands, notably on the left, alleviating with potassium intake. - The patient's medical history involves chronic kidney disease evaluated as Stage 4, attributed to past hypertension and historic ibuprofen use, though persistent etiology remains unclear. Patient is established with Nephrology for the management potassium supplement is through them Medications - Omeprazole for gastrointestinal management. - Sodium bicarbonate for acid-base balance. Through Nephrology - Potassium chloride for potassium supplementation. Nephrology Problem List - Abdominal Pain - Chronic Kidney Disease Stage 4 Diagnostic results - Liver enzyme tests were considered but results pending. - B12 levels considered but results pending. [place] of Care: Nephrology Patient Instructions - Avoid consuming heavy and fatty meals to minimize abdominal pain. - Increase hydration with fluids, favoring broth and bland carbohydrates like boiled pasta or rice. - Abstain from consuming sodas - Proceed to the emergency room if pain intensity increases significantly. - Labs to be performed next door; ultrasound to be scheduled to evaluate potential gallbladder concerns. - Ultrasound is prioritized with urgency to diagnose inflammation. - Light meals are recommended, avoiding external food like tacos. Review of Systems - Neurological: Reports burning, nvdj-lwp-fcffhsz sensation in the forehead and hands, especially on the left side. - Musculoskeletal: Reports past migraines, now less frequent after blood pressure control. General: No fever no chills ear nose throat: No sore throat no hearing difficulty no ear pain cardiovascular: No syncope, no chest pain, no palpitations gastrointestinal: No nausea vomiting or diarrhea endocrine: No polyuria polydipsia no heat intolerance genitourinary: No dysuria Physical Exam general: No acute distress HEENT: Red rash across forehead neck: Supple respiratory system: Able to talk in full sentences, no audible wheeze no stridor cardiovascular: S1-S2 gastrointestinal: Abdominal pain present right upper quadrant with deep pressure without any guarding , bowel sounds positive extremities: Pins and needles sensation, more in the left hand RIGHT 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 1. Little interest or pleasure in doing things: not at all 2. Feeling down, depressed, or hopeless: not at all 3. Trouble falling or staying asleep, or sleeping too much: nearly every day 4. Feeling tired or having little energy: nearly every day 5. Poor appetite or overeating: not at all 6. Feeling bad about yourself - or that you are a failure or have let yourself or your family down: not at all 7. Trouble concentrating on things, such as reading the newspaper or watching television: not at all 8. Moving or speaking so slowly that other people could have noticed. Or the opposite - being so fidgety or restless that you have been moving around a lot more than usual: not at all 9. Thoughts that you would be better off or of hurting yourself in some way: not at all Total score: 6 Depression Screening Interpretation: Negative Depression Screening Done: Yes 84492 - PHQ-9 Billing: Yes Source: Developed by Drs. Miah Hanley, Asia Norman, Gabriel Thorpe and colleagues, with an educational reza from [employer]. Thrive Questionnaire Date Thrive assessed: 08/07/24 I am a: Patient What is your living situation today?: I have a steady place to live Within the past 12 months, did the food you bought not last and you didn't have the money to get more?: I choose not to answer this question Within the past 12 months, did you worry whether your food would run out before you got money to buy more?: I choose not to answer this question Do you have trouble paying for medicines?: I choose not to answer this question Do you have trouble getting transportation to medical appointments?: No Do you have trouble paying your heating and electricity bill?: I choose not to answer this question Do you have trouble taking care of your child, family member or friend?: I choose not to answer this question Do you have trouble with day-to-day activities such as bathing, preparing meals, shopping, managing finances, etc.?: No Are you currently unemployed and looking for a job?: I choose not to answer this question Are you interested in more education?: I choose not to answer this question Please select the resources that you would like help with: None Currently or been in a relationship where the following occur: I choose not to answer THRIVE Score: 0 AUDIT C Alcohol Use Questionnaire (AUDIT-C) 1. How often do you have a drink containing alcohol?: Monthly or less 2. How many drinks containing alcohol do you have on a typical day when you are drinking?: 1 or 2 3. How often do you have six or more drinks on one occasion?: Never Total Score: 1 Score Reviewed/Action Taken: Yes JESUS-7 AMB Questionnaire JESUS-7 Date JESUS - 7 assessed: 08/07/24 Feeling nervous, anxious, or on edge: 0 = Not at all Not being able to stop or control worryin = Not at all Worrying too much about different things: 0 = Not at all Trouble relaxin = Not at all Being so restless that it is hard to sit still: 0 = Not at all Becoming easily annoyed or irritable: 0 = Not at all Feeling afraid as if something awful might happen: 0 = Not at all Total JESUS-7 score (0-4 normal; 5-9 mild; 10-14 moderate; 15-21 severe): 0 Source: Developed by Drs. Miah Hanley, Asia Norman, Gabriel Thorpe and colleagues, with an educational reza from [employer]. JESUS-7 Assessment Billing JESUS-7 Assessment Tool: JESUS-7 Assessment 72190 Physical exam (Primary Care) Vital Signs: Last Vital Signs Pulse 78 08/07/24 13:04 BP 138/82 08/07/24 13:04 Pulse Ox 98 08/07/24 13:04 Oxygen Delivery Method Room Air 08/07/24 13:04 BMI result Body Mass Index 36.5 Tobacco/Smoking Status: Tobacco use Status Tobacco use date assessed 08/07/24 08/07/24 13:07 Patient Tobacco Use Status Never used Tobacco 08/07/24 13:07 e-Cigarette/Vaping Use Never Used 08/07/24 13:07 PHQ-9: PHQ-9 Score PHQ-9: Total score 6 08/07/24 13:38 Depression Screening Interpretation: Negative Thrive Assessment: Date of Thrive Assessment Date Thrive assessed 08/07/24 08/07/24 13:07 Currently or been in a relationship where the following occur: I choose not to answer Coding Level of Care Code Est Pt Level 4 (81363) Diagnoses Chronic kidney disease, stage 4 (severe) N18.4 Abdominal pain, right upper quadrant R10.11 Class 2 severe obesity due to excess calories with serious comorbidity and body mass index (BMI) of 36.0 to 36.9 in adult E66.01; Z68.36 Body mass index: BMI 36.0-36.9 Obesity classification: adult class 2 (BMI 35 - 39.9) Serious obesity comorbidity presence: with serious comorbidity Additional Codes JESUS-7 Assessment Billing - JESUS-7 Assessment Tool: JESUS-7 Assessment 44993 ([id number]) PHQ-9 - 49996 - PHQ-9 Billing: Yes ([id number]) Assessment & Plan Assessment & Plan (1) Chronic kidney disease, stage 4 (severe): Code(s): N18.4 - Chronic kidney disease, stage 4 (severe) Category: Medical (2) Abdominal pain, right upper quadrant: Code(s): R10.11 - Right upper quadrant pain Category: Medical (3) Obesity due to excess calories: Code(s): E66.09 - Other obesity due to excess calories Category: Medical Qualifiers: Body mass index: BMI 36.0-36.9 Obesity classification: adult class 2 (BMI 35 - 39.9) Serious obesity comorbidity presence: with serious comorbidity Qualified Code(s): E66.01 - Morbid (severe) obesity due to excess calories; Z68.36 - Body mass index [BMI] 36.0-36.9, adult Plan - The patient is a 54-year-old female presenting with abdominal pain - She describes the abdominal pain as persistent since before May, worsening when lying on her side and after consuming heavy meals, - Additionally, she reports unusual burning, brfc-ehm-fesbwiw sensation across her forehead and in her hands, notably on the left, alleviating with potassium intake. - The patient's medical history involves chronic kidney disease evaluated as Stage 4, attributed to past hypertension and historic ibuprofen use, though persistent etiology remains unclear. Patient is established with Nephrology for the management potassium supplement is through them Medications - Omeprazole for gastrointestinal management. - Sodium bicarbonate for acid-base balance. Through Nephrology - Potassium chloride for potassium supplementation. Nephrology Problem List - Abdominal Pain - Chronic Kidney Disease Stage 4 Diagnostic results - Liver enzyme tests were considered but results pending. - B12 levels considered but results pending. [place] of Care: Nephrology Patient Instructions - Avoid consuming heavy and fatty meals to minimize abdominal pain. - Increase hydration with fluids, favoring broth and bland carbohydrates like boiled pasta or rice. - Abstain from consuming sodas - Proceed to the emergency room if pain intensity increases significantly. - Labs to be performed next door; ultrasound to be scheduled to evaluate potential gallbladder concerns. - Ultrasound is prioritized with urgency to diagnose inflammation. - Light meals are recommended, avoiding external food like tacos. Orders: Orders Comprehensive Met. Panel Today R10.11 - Right upper quadrant pain Complete Blood Count Auto Diff Today R10.11 - Right upper quadrant pain Vitamin B12 Today R10.11 - Right upper quadrant pain Vitamin D 25-OH (D2 and D3) Today R10.11 - Right upper quadrant pain TSH reflex Free T4 Today R10.11 - Right upper quadrant pain US abdomen complete Today R10.11 - Right upper quadrant pain LDL Cholesterol Direct Today E66.01 - Morbid (severe) obesity due to excess calories, Z68.36 - Body mass index [BMI] 36.0-36.9, adult UA CC w/rflx Micro + Cult Today N18.4 - Chronic kidney disease, stage 4 (severe)
[2024-08-07 13:04] VITALS: BP 138/82; PULSE 78; O2SAT 98; BMI 36.5
--- OUTSIDE RECORDS SUMMARY | 2024-08-07 15:05 | XMS_ITS | Clinical Summary ---
Author Organization [facility] Address [address] [facility] [place] [address] Phone Care Team Providers Care Police Detention Attendant Name Role Phone Unavailable Primary Care Provider Unavailabl e Allergies No known active allergies Medications cholecalciferol (VITAMIN D-3) 50 MCG (2000 UT) tablet Take 1 tablet (2,000 Units total) by mouth 1 (one) time each day 30 tablet 5 10/10/2022 Active sodium bicarbonate 650 MG tablet Take 2 tablets (1,300 mg total) by mouth in the morning and 2 tablets (1,300 mg total) in the evening and 2 tablets (1,300 mg total) before bedtime. 540 tablet 3 10/03/2023 Active sodium bicarbonate 650 MG tablet Take 1 tablet (650 mg total) by mouth in the morning and 1 tablet (650 mg total) at noon and 1 tablet (650 mg total) in the evening and 1 tablet (650 mg total) before bedtime. 120 tablet 11 10/03/2023 10/03/19 25 Active omeprazole (PriLOSEC) [address] capsule TAKE 1 CAPSULE (20 MG) ORALLY DAILY 01/12/2024 Active potassium chloride (KLOR-CON) 20 MEQ packet TAKE 20 MEQ (1 PACKET MIXING WITH WATER) BY MOUTH IN THE MORNING AND 20 MEQ IN THE EVENING. 180 packet 3 07/04/2024 Active Active Problems Problem Noted Date Diagnosed Date Hypokalemia 05/16/2023 Severe obesity 09/05/2022 Acute kidney injury due to trauma 08/09/2022 Vitamin D deficiency 08/09/2022 Gastroesophageal reflux disease 08/09/2022 Chronic kidney disease, stage 4 (severe) 021 Proteinuria 03/22/2021 Chronic kidney disease stage 3 12/18/2020 Essential hypertension 12/18/2020 Encounters Date Type Department Care Team Description 07/04/2024 Refill [facility] [address] [place] [phone] Bryson Menon MD from Last 3 Months Family History Medical History Relation Comments Diabetes Mother Hypertension Mother Diabetes Sibling Relation Status Comments Father Alive Mother Alive Sibling Social History Tobacco Use Types Packs/Day Years Used Date Smoking Tobacco: Never Tobacco Cessation:Counseling Given: Not Answered Alcohol Use Standard Drinks/Week Comments Yes 0 (1 standard drink = 0.6 oz pure alcohol) Alcoholic Drinks/day: Occasional social drink Comments Unknown Sex and Gender Information Value Date Recorded Sex Assigned at Not on file Legal Sex Female 4:41 PM EST Gender Identity Not on file Sexual Orientation Not on file Last Filed Vital Signs Vital Sign Reading Time Taken Comments Blood Pressure 128/64 03/07/2024 3:13 PM EDT Pulse 93 03/07/2024 3:13 PM EDT Temperature - - Respiratory Rate - - Oxygen Saturation 99% 03/07/2024 3:13 PM EDT Inhaled Oxygen Concentration - - Weight 89.9 kg (198 lb 3.2 oz) 03/07/2024 3:13 P M EDT Height 157.5 cm (5' 2 ) 03/22/2021 4:30 PM EDT Body Mass Index 36.25 03/22/2021 4:30 PM EDT Plan of Treatment Upcoming Encounters Date Type Department Care Team (Late st Contact Info) Description 10/03/2024 2:00 PM EDT [facility] [address] [place] [address] Bryson Menon MD [address] [facility] 204 [place] [address] Health Maintenance Due Date Last Done Comments Breast Cancer Screening 1968 Pneumococcal Vaccine: Pediat rics (0 to 5 Years) and At-Risk Patients (6 to 64 Years) (1 of 2 - PCV) 1974 Hepatitis B Vaccine (1 of 3 - 19+ 3-dose series) 06/07 Colorectal Cancer Screening: Annual FOBT 2017 Colorectal Cancer Screening: Colonoscopy 2017 Colorectal Cancer Screening: Sigmoidoscopy 2017 Influenza Vaccine (#1) 2024 Insurance
--- OUTSIDE RECORDS SUMMARY | 2024-08-07 15:05 | XMS_ITS | Encounter Summary ---
Author Organization [facility] Address [address] [facility] 200 [place] [address] Phone Care Team Providers Care Route Driver Coin Machines Name Role Phone Jacky Vallejo MD Primary Care Provider [phone] Encounter Details Date Type Department Care Team ([facility] Contact Info) Description 08/01/2022 Telephone [facility] [address] [employer] [facility] 200 [place] [phone] Bryson Menon MD [address] [facility] [address] [place] [phone] Social History Tobacco Use Types Packs/Day Years Used Date Smoking Tobacco: Never Alcohol Use Standard Drinks/Week Comments Yes 0 (1 standard drink = 0.6 oz pure alcohol) Alcoholic Drinks/day: Occasional social drink Comments Unknown Sex and Gender Information Value Date Recorded Sex Assigned at Not on file Legal Sex Female 4:41 PM EST Gender Identity Not on file Sexual Orientation Not on file documented as of this encounter Miscellaneous Notes * Telephone Encounter - Estella Reddy - 08/01/2022 1:23 PM EST Pts called, she needs new lab orders for her appt on 09/13/22. Please call him once done thank you. CB# [phone] documented in this encounter Plan of Treatment Upcoming Encounters Date Type Department Care Team ([facility] Contact Info) Description 10/03/2024 2:00 PM EDT Office [facility] [address] [place] [address] Bryson Menon MD [address] [facility] 204 [place] [address] documented as of this encounter Visit Diagnoses Not on filedocumented in this encounter Care Teams Route Driver Coin Machines Relationship Specialty Start Date End Date Jacky Vallejo MD [place] [place] [address] PCP - General 07/20/20 10/02/23 documented as of this encounter
--- OUTSIDE RECORDS SUMMARY | 2024-08-07 15:05 | XMS_ITS | Encounter Summary ---
Author Organization [facility] Address [address] [facility] 200 [place] [address] Phone Care Team Providers Care Nuclear Powerplant Supervisor Name Role Phone Jacky Vallejo MD Primary Care Provider [phone] Reason for Visit * Reason Comments Med Refill Encounter Details Date Type Department Care Team (Late Contact Info) Description 10/17/2020 Refill [facility] [address] [facility] 200 [place] [address] Bryson Menon MD [address] [facility] [address] [place] [address] Social History Tobacco Use Types Packs/Day Years [...] on file documented as of this encounter Plan of Treatment Upcoming Encounters Date Type Department Care Team (Late Contact Info) Description 10/03/2024 2:00 PM EDT Office [facility] [address] [place] [address] Bryson Menon MD [address] [facility] [address] [place] [address] documented as of this encounter Visit Diagnoses Not on filedocumented in this encounter Care Teams Nuclear Powerplant Supervisor Relationship Specialty Start Date End Date Jacky Vallejo MD [employer] [place] [address] PCP - General 07/20/20 10/02/23 documented as of this encounter
--- OUTSIDE RECORDS SUMMARY | 2024-08-07 15:05 | XMS_ITS | Encounter Summary ---
Author Organization [facility] Address [address] [facility] 200 [place] [address] Phone Care Team Providers Care Potato Chip Fryer Name Role Phone Jacky Vallejo MD Primary Care Provider [phone] Encounter Details Date Type Department Care Team ([facility] st Contact Info) Description 08/01/2022 Telephone [facility] [address] [facility] [address] [place] [address] Bryson Menon MD 3555 [facility] [address] [place] [phone] Social History Tobacco Use Types Packs/Day Years [...] * Telephone Encounter - Estella Reddy - 08/02/2022 10:49 AM EST All set * Telephone Encounter - Estella Reddy - 08/01/2022 1:19 PM EST Pts called, she is not doing well. For the llast month she has had trouble holding down herfood and is very fatigued and sleeping a lot. As time goes on her condition seems to worsen. He would like to discuss this with you in detail to see what an be done for her. Please call him back at [phone] Thank you documented in this encounter Plan of Treatment Upcoming Encounters Date Type Department Care Team (Late st Contact Info) Description 10/03/2024 2:00 PM EDT Office [facility] [address] [place] [address] Bryson Menon MD 47[address] [facility] [address] [place] [address] documented as of this encounter Visit Diagnoses Not on filedocumented in this encounter Care Teams Potato Chip Fryer Relationship Specialty Start Date End Date Jacky Vallejo MD [facility] [place] [address] PCP - General 07/20/20 10/02/23 documented as of this encounter
--- OUTSIDE RECORDS SUMMARY | 2024-08-07 15:05 | XMS_ITS | Clinical Summary ---
Author Organization [facility] Address [address] [place] [address] Care Team Providers Care Epic Kaleidoscope Analyst Name Role Phone Unavailable Primary Care Provider Unavailabl e Allergies Active Allergy Reactions Criticality Noted Date Comments Nka 12/25/2014 Medications Medication Sig Dispensed Refills Start Date End Date Status lisinopril (PRINIVIL,ZESTRIL) 20 MG tablet 1 12/18/2014 Active hydrochlorothiazide (HYDRODIURIL) 12.5 MG tablet 7 03/09/2015 Active Active Problems No known active problems Social History Tobacco Use Types Packs/Day Years Used Date Smoking Tobacco: Never Alcohol Use Standard Drinks/Week Comments Not Asked 0 (1 standard drink = 0.6 oz pur e alcohol) Sex and Gender Information Value Date Recorded Sex Assigned at Not on file Gender Identity Not on file Sexual Orientation Not on file Last Filed Vital Signs Vital Sign Reading Time Taken Comments Blood Pressure 120/70 05/15/2015 12:36 PM EST Pulse 70 02/17/2015 11:49 AM EDT Temperature - - Respiratory Rate 14 02/17/2015 11:4 9 AM EDT Oxygen Saturation - - Inhaled Oxygen Concentration - - Weight 70.3 kg (154 lb 15.7 oz) 015 12:36 PM EST Height 152 cm (4' 11.84 ) 05/15/2015 12 :36 PM EST Body Mass Index 30.43 05/15/2015 12:36 PM EST Plan of Treatment Health Maintenance Due Date Last Done Comments Hepatitis B Vaccines (1 of 3 - 3-dose series) 1968 Hepatitis C Screening 1968 COVID-19 Vaccine (#1) 1968 Depression Screening 1980 Preventative Health Evaluation 1986 DTap / Tdap / Td (1 - Tdap) 1987 Cervical Cancer Screening (P ap Smear) 1989 Colon Cancer Screening (Colonoscopy) 2013 Breast Cancer Screening (Mammogram) 2018 Shingrix-Zoster Vaccine (1 of 2) 2018 Influenza Vaccine (#1) 2024 Pneumococcal Vaccine Aged Out No long er eligible based on patient's age to complete this topic RSV Ped < 20 months Aged Out No longe r eligible based on patient's age to complete this topic
== END 2024-08-07 13:33 | disposition home or self-care (01) ==
PROVIDERS: PCP Internal Medicine; Visit Provider Internal Medicine
DX: N18.4 Chronic kidney disease, stage 4 (severe) (principal); R10.11 Right upper quadrant pain; E66.01 Morbid (severe) obesity due to excess calories; Z68.36 Body mass index [BMI] 36.0-36.9, adult

== ENCOUNTER 2024-08-08 09:32 | Outpatient (REF) | payer OTHER, SELFPAY ==
--- NOTE | ~2024-08-08 | US_ITS ---
CLINICAL HISTORY: R10.11 - Right upper quadrant pain US abdomen complete Comparison: None Findings: The visualized pancreas is normal. The aorta and inferior vena cava are normal caliber. The liver is normal in size with increase of echogenicity. There is no intrahepatic bile duct dilatation. The common duct is 4.0 mm in diameter. Gallstone in the gallbladder. Normal wall thickness of the gallbladder. The main portal vein is antegrade. The right kidney is 10 cm in length. Mild increase of echogenicity of the right kidney. The left kidney is 9.5 cm in length. 2 cm upper pole cyst. The spleen is normal. No ascites. IMPRESSION: Cholelithiasis. Hepatic steatosis. This document has been electronically signed by: Milvia Rust MD on 08/08/2024 13:47:42
--- OUTSIDE RECORDS SUMMARY | 2024-08-08 12:36 | XMS_ITS | Clinical Summary ---
Author Organization [facility] Address [address] [place] [address] Care Team Providers Care Education Department Registrar Name Role Phone Unavailable Primary Care Provider [...]
--- OUTSIDE RECORDS SUMMARY | 2024-08-08 12:36 | XMS_ITS | Encounter Summary ---
Author Organization [facility] Address [address] [facility] 200 [place] [address] Phone Care Team Providers Care Photographer Portrait Name Role Phone Jacky Vallejo MD Primary Care Provider Reason for Visit * Reason Comments Med Refill Encounter Details Date Type Department Care Team (Late Contact Info) Description 10/17/2020 Refill [facility] [address] [facility] [address] [place] [address] Bryson Menon MD [address] [facility] [address] [place] [address] Social History Tobacco Use Types [...] Visit [facility] [address] [place] [address] Bryson Menon MD [address] [facility] [address] [place] [address] documented as of this encounter Visit Diagnoses Not on filedocumented in this encounter Care Teams Photographer Portrait Relationship Specialty Start Date End Date Jacky Vallejo MD [facility] [place] [address] PCP - General 07/20/20 10/02/23 documented as of this encounter
--- OUTSIDE RECORDS SUMMARY | 2024-08-08 12:36 | XMS_ITS | Encounter Summary ---
Author Organization [facility] Address [address] [facility] 200 [place] [address] Phone Care Team Providers Care Boiling House Hand Name Role Phone Jacky Vallejo MD Primary Care Provider [phone] Encounter Details Date Type Department Care Team ([facility] st Contact Info) Description 08/01/2022 Telephone [facility] 100 [facility] [address] [place] [address] Bryson Menon MD 355[address] [facility] 204 [place] [phone] Social History Tobacco Use Types Packs/Day Years [...] for her. Please call him back at [phone] Thank you documented in this encounter Plan of Treatment Upcoming Encounters Date Type Department Care Team (Late st Contact Info) Description 10/03/2024 2:00 PM EDT Office [facility] [address] [place] [address] Bryson Menno MD [address] [facility] 204 [place] [address] documented as of this encounter Visit Diagnoses Not on filedocumented in this encounter Care Teams Boiling House Hand Relationship Specialty Start Date End Date Jacky Vallejo MD [facility] [place] [address] PCP - General 07/20/20 10/02/23 documented as of this encounter
--- OUTSIDE RECORDS SUMMARY | 2024-08-08 12:36 | XMS_ITS | Clinical Summary ---
Author Organization [facility] Address [address] [address] [address] [place] [address] Phone Care Team Providers Care Information Systems Architect Name Role Phone Unavailable Primary Care Provider [...] 07/04/2024 Refill [facility] [address] [place] [phone] Bryson Menon MD from Last 3 Months [...] Visit [facility] [address] [place] [address] Bryson Menon MD 26[address] [facility] 204 [place] [address] Health Maintenance Due Date Last [...]
--- OUTSIDE RECORDS SUMMARY | 2024-08-08 12:36 | XMS_ITS | Encounter Summary ---
Author Organization [facility] Address [address] [facility] 200 [place] [address] Phone Care Team Providers Care Speech Language Specialist Name Role Phone Jacky Vallejo MD Primary Care Provider [phone] Encounter Details Date Type Department Care Team ([facility] Contact Info) Description 08/01/2022 Telephone [facility] [address] [employer] [facility] 200 [place] [address] Bryson Menon MD 3554 [facility] 204 [place] [address] Social History Tobacco Use Types Packs/Day Years [...] call him once done thank you. CB# [phone] documented in this encounter Plan of Treatment Upcoming Encounters Date Type Department Care Team ([facility] Contact Info) Description 10/03/2024 2:00 PM EDT Office [facility] [address] [place] [address] Bryson Menon MD [address] [facility] 204 [place] [address] documented as of this encounter Visit Diagnoses Not on filedocumented in this encounter Care Teams Speech Language Specialist Relationship Specialty Start Date End Date Jacky Vallejo MD [employer] [place] [address] PCP - General 07/20/20 10/02/23 documented as of this encounter
== END 2024-08-08 09:33 | disposition home or self-care (01) ==
LOC: HO.HMGCX 09:32
PROVIDERS: PCP Internal Medicine; Visit Provider Internal Medicine
DX: R10.11 Right upper quadrant pain (principal)
CPT/HCPCS: 76700

== ENCOUNTER → 2024-08-08 09:33 | Outpatient (BNV) | payer OTHER, SELFPAY | PROVIDERS: PCP Internal Medicine; Visit Provider Nuclear Medicine | DX: R10.11 Right upper quadrant pain (principal) | CPT/HCPCS: 76700 ==

== ENCOUNTER 2024-08-09 08:46 | Outpatient (REF) | payer OTHER, SELFPAY ==
--- OUTSIDE RECORDS SUMMARY | 2024-08-09 09:03 | XMS_ITS | Clinical Summary ---
Author Organization [facility] Address [address] [place] [address] Care Team Providers Care High School Band Director Name Role Phone Unavailable Primary Care Provider [...]
--- OUTSIDE RECORDS SUMMARY | 2024-08-09 09:03 | XMS_ITS | Encounter Summary ---
Author Organization [facility] Address [address] [facility] 200 [place] [address] Phone Care Team Providers Care Business Assistant Name Role Phone Jacky Vallejo MD Primary Care Provider [phone] Reason for Visit * Reason Comments Med Refill Encounter Details Date Type Department Care Team (Late Contact Info) Description 10/17/2020 Refill [facility] [address] [facility] 200 [place] [address] Bryson Menon MD 7[address] [facility] 204 [place] [address] Social History Tobacco Use Types [...] Visit [facility] [address] [place] [address] Bryson Menon MD 0656 [facility] 204 [place] [address] documented as of this encounter Visit Diagnoses Not on filedocumented in this encounter Care Teams Business Assistant Relationship Specialty Start Date End Date Jacky Vallejo MD [facility] [address] PCP - General 07/20/20 10/02/23 documented as of this encounter
--- OUTSIDE RECORDS SUMMARY | 2024-08-09 09:03 | XMS_ITS | Clinical Summary ---
Author Organization [facility] Address [address] [facility] [address] [place] [address] Phone Care Team Providers Care Acetylene Cylinder Packing Mixer Name Role Phone Unavailable Primary Care Provider [...] 07/04/2024 Refill [facility] [address] [place] [phone] Bryson Menon MD from Last 3 Months [...] Visit [facility] [address] [place] [address] Bryson Menon MD 250[address] [facility] 204 [place] [address] Health Maintenance Due Date Last [...]
--- OUTSIDE RECORDS SUMMARY | 2024-08-09 09:04 | XMS_ITS | Encounter Summary ---
Author Organization [facility] Address [address] [facility] [address] [place] [address] Phone Care Team Providers Care Wood Scaler Name Role Phone Jacky Vallejo MD Primary Care Provider [phone] Encounter Details Date Type Department Care Team ([facility] st Contact Info) Description 08/01/2022 Telephone [facility] [address] [facility] [address] [place] [address] Bryson Menon MD [address] [facility] [address] [place] [phone] Social History Tobacco Use Types Packs/Day Years [...] for her. Please call him back at [phone] Thank you documented in this encounter Plan of Treatment Upcoming Encounters Date Type Department Care Team (Late st Contact Info) Description 10/03/2024 2:00 PM EDT Office Visit [facility] [address] [place] [address] Bryson Menon MD [address] [facility] [address] [place] [address] documented as of this encounter Visit Diagnoses Not on filedocumented in this encounter Care Teams Wood Scaler Relationship Specialty Start Date End Date Jacky Vallejo [place] [address] PCP - General 07/20/20 10/02/23 documented as of this encounter
--- OUTSIDE RECORDS SUMMARY | 2024-08-09 09:04 | XMS_ITS | Encounter Summary ---
Author Organization [facility] Address [address] [facility] [address] [place] [address] Phone Care Team Providers Care Tombstone Carver Name Role Phone Jacky Vallejo MD Primary Care Provider [phone] Encounter Details Date Type Department Care Team ([facility] Contact Info) Description 08/01/2022 Telephone [facility] [address] [employer] [facility] [address] [place] [phone] Bryson Menon MD [address] [facility] [address] [place] [phone] Social History Tobacco Use Types Packs/Day Years [...] call him once done thank you. CB# [phone] documented in this encounter Plan of Treatment Upcoming Encounters Date Type Department Care Team ([facility] Contact Info) Description 10/03/2024 2:00 PM EDT Office Visit [facility] [address] [place] [address] Bryson Menon MD [address] [facility] [address] [place] [phone] documented as of this encounter Visit Diagnoses Not on filedocumented in this encounter Care Teams Tombstone Carver Relationship Specialty Start Date End Date Jacky Vallejo MD [facility] [place] [address] PCP - General 07/20/20 10/02/23 documented as of this encounter
[2024-08-09 10:52] LABS: Appearance Urine Cloudy; Color Urine Yellow; Glucose Urine UA 500 mg/dL (Negative); Leukocyte Esterase Urine Negative (Negative); Nitrite Urine Negative (Negative); Specific Gravity - Urine 1.015 (1.005-1.025); UMIC TRIGGER UACC YES; Urine Blood Small (1+) (Negative); Urine Ketones Negative (Negative); Urine Protein 100 (2+) mg/dL (Neg-Trace)
[2024-08-09 11:00] LABS: Estimated Average Glucose 100 mg/dL; Hemoglobin A1C 118.1647 umol/L; Hemoglobin A1c % 5.1 % (<6.0); Total Hemoglobin (HGBA1C) 3718.1651 umol/L
[2024-08-09 11:11] LABS: Bacteria Urine 3+ (None Seen); RBC Urine 0-2 /HPF (0-2); WBC Urine 0-5 /HPF (0-5)
== END 2024-08-09 08:47 | disposition home or self-care (01) ==
LOC: HO.HMGCLDS 08:46
PROVIDERS: PCP Internal Medicine; Visit Provider Internal Medicine
DX: R81 Glycosuria (principal); Z13.1 Encounter for screening for diabetes mellitus
CPT/HCPCS: 36415; 81001; 83036

== ENCOUNTER 2024-08-09 09:11 | Outpatient (AMB) | payer OTHER, SELFPAY ==
[2024-08-09 09:11] VITALS: BP 120/78; PULSE 70; O2SAT 96; BMI 36.3
--- NOTE | 2024-08-09 09:11 | A.OFFPC_ITS ---
Vital Signs 08/09/24 09:11 Height 5 ft 2 in Weight 198 lb 6 oz BMI 36.3 BP 120/78 Blood Pressure Location Lt brachial Position Sitting Pulse 70 Pulse Source Pulse Oximeter Pulse Oximetry (%) 96 Oxygen Delivery Method Room Air Intake Visit Reasons: Discuss Results Allergies No Known Allergies [No Known Allergies*] Allergy (Verified 08/07/24 13:04) Environmental Allergies Allergy (Unknown, Uncoded 11/17/23 11:21) Difficulty Breathing Mold Allergy (Unknown, Uncoded 11/17/23 11:21) Difficulty Breathing mold Allergy (Unknown, Uncoded 11/17/23 11:21) Difficulty Breathing Medication List - Last Reconciled 08/09/24 by Jacky Vallejo MD cholecalciferol (vitamin D3) 50 mcg PO DAILY omeprazole 20 mg PO DAILY potassium chloride mEq PO sodium bicarbonate 20 mg PO BID Tobacco use date assessed: 08/07/24 Dental Screening Dental Screen Date: 08/07/24 HPI Discuss Results HPI Details History - The patient is a 54-year-old female pr esenting with cholelithiasis. - She has reported experiencing consiste nt abdominal pain attributed to gallstone presence, confirmed via ultrasound. - The condition persists, prompting the consideration of elective surgical intervention. - A recent lab evaluation indicated gluc osuria, hence further assessment was conducted to rule out diabetes. - Historical lab tests in January showed gl ucose levels within non-diabetic range. - A background of familial diabetes risk is noted. - patient also suffers from chronic kidn ey disease stage 4 - obesity, and is requesting nutritional referral Problem List - Cholelithiasis - Prediabetes - obesity - stage 4 kidney disease Patient Instructions - You need to follow a controlled diet t o manage prediabetic condition. A dietitian appointment will be scheduled at [facility] for further guidance. - Plan for an elective cholecystectomy, and wait for referral department contact regarding scheduling. Patient would like to go to [facility] - If you experience worsening symptoms l marie severe abdominal pain, contact medical services promptly. Review of Systems - Gastrointestinal: Reports abdominal pa in consistent with gallstone presence. - General: No fever no chills - Neurological: No headaches no dizziness - Ear nose throat: No sore throat no hearing difficulty no ear pain - Cardiovascular: No syncope, no chest pain, no palpitations - Endocrine: No polyuria polydipsia no heat intolerance - Genitourinary: No dysuria , no blood in urine Physical Exam General: No acute distress HEENT: No acute findings Neck: Supple Respiratory system: Able to talk in full sentences, no audible wheeze cardiovascular: S1-S2 regular in rate and rhythm Gastrointestinal: Pain due to gallstones irritating the lining of the gallbladder Extremities: No new findings DYE WEIGHER HELPER: Alert awake oriented x3 motor sensory intact Skin: Normal [facility] Social [facility] Housing: House Patient Tobacco Use Status: Never used Tobacco e-Cigarette/Vaping Use: Never Used service: No Current occupational status: employed Current occupational exposures/hazards: No Cognitive needs: No Hearing needs: No Vision needs: No Questionnaire Thrive Questionnaire Date Thrive assessed: 08/07/24 JESUS-7 AMB Questionnaire JESUS-7 Date JESUS - 7 assessed: 08/07/24 Source: Developed by Drs. Miah Hanley, Asia Norman, Gabriel Thorpe and colleagues, with an educational reza from [employer]. Physical exam (Primary Care) Vital Signs: Last Vital Signs Pulse 70 08/09/24 09:11 BP 120/78 08/09/24 09:11 Pulse Ox 96 08/09/24 09:11 Oxygen Delivery Method Room Air 08/09/24 09:11 BMI result Body Mass Index 36.3 Tobacco/Smoking Status: Tobacco use Status Tobacco use date assessed 08/07/24 08/09/24 09:12 Patient Tobacco Use Status Never used Tobacco 08/09/24 09:12 e-Cigarette/Vaping Use Never Used 08/09/24 09:12 Thrive Assessment: Date of Thrive Assessment Date Thrive assessed 08/07/24 08/09/24 09:12 Coding Level of Care Code Est Pt Level 4 (84367) Diagnoses Calculus of gallbladder without cholecystitis without obstruction K80.20 Cholelithiasis location: gallbladder Cholecystitis presence: without cholecystitis Biliary obstruction: without biliary obstruction Abdominal pain, right upper quadrant R10.11 Glucosuria R81 Pre-diabetes R73.03 Class 2 severe obesity due to excess calories with serious comorbidity and body mass index (BMI) of 36.0 to 36.9 in adult E66.01; Z68.36 Body mass index: BMI 36.0-36.9 Obesity classification: adult class 2 (BMI 35 - 39.9) Serious obesity comorbidity presence: with serious comorbidity Chronic kidney disease, stage 4 (severe) N18.4 Assessment & Plan Assessment & Plan (1) Cholelithiasis: Code(s): K80.20 - Calculus of gallbladder without cholecystitis without obstruction Category: Medical Qualifiers: Cholelithiasis location: gallbladder Cholecystitis presence: without cholecystitis Biliary obstruction: without biliary obstruction Qualified Code(s): K80.20 - Calculus of gallbladder without cholecystitis without obstruction (2) Abdominal pain, right upper quadrant: Code(s): R10.11 - Right upper quadrant pain Category: Medical (3) Glucosuria: Code(s): R81 - Glycosuria Category: Medical (4) Pre-diabetes: Code(s): R73.03 - Prediabetes Category: Medical (5) Obesity due to excess calories: Code(s): E66.09 - Other obesity due to excess calories Category: Medical Qualifiers: Body mass index: BMI 36.0-36.9 Obesity classification: adult class 2 (BMI 35 - 39.9) Serious obesity comorbidity presence: with serious comorbidity Qualified Code(s): E66.01 - Morbid (severe) obesity due to excess calories; Z68.36 - Body mass index [BMI] 36.0-36.9, adult (6) Chronic kidney disease, stage 4 (severe): Code(s): N18.4 - Chronic kidney disease, stage 4 (severe) Category: Medical Plan History - The patient is a 54-year-old female presenting with cholelithiasis. - She has reported experiencing consistent abdominal pain attributed to gallstone presence, confirmed via ultrasound. - The condition persists, prompting the consideration of elective surgical intervention. - A recent lab evaluation indicated glucosuria, hence further assessment was conducted to rule out diabetes. - Historical lab tests in January showed glucose levels within non-diabetic range. - A background of familial diabetes risk is noted. - patient also suffers from chronic kidney disease stage 4 - obesity, and is requesting nutritional referral Problem List - Cholelithiasis - Prediabetes - obesity - stage 4 kidney disease Patient Instructions - You need to follow a controlled diet to manage prediabetic condition. A dietitian appointment will be scheduled at [facility] for further guidance. - Plan for an elective cholecystectomy, and wait for referral department contact regarding scheduling. Patient would like to go to [facility] - If you experience worsening symptoms like severe abdominal pain, contact medical services promptly. Orders: Referrals General Surgery Referral K80.20 - Calculus of gallbladder without cholecystitis without obstruction, R10.11 - Right upper quadrant pain Fiberglass Grinder Nutrition Referral E66.01 - Morbid (severe) obesity due to excess calories, N18.4 - Chronic kidney disease, stage 4 (severe), R73.03 - Prediabetes, R81 - Glycosuria, Z68.36 - Body mass index [BMI] 36.0-36.9, adult
--- OUTSIDE RECORDS SUMMARY | 2024-08-09 09:38 | XMS_ITS | Clinical Summary ---
Author Organization [facility] Address [address] [place] [address] Care Team Providers Care Fitter/Welder Name Role Phone Unavailable Primary Care Provider [...]
--- OUTSIDE RECORDS SUMMARY | 2024-08-09 09:38 | XMS_ITS | Clinical Summary ---
Author Organization [facility] Address [address] [facility] [address] [place] [address] Phone Care Team Providers Care Computer Security Coordinator Name Role Phone Unavailable Primary Care Provider [...] 07/04/2024 Refill [facility] [address] [place] [phone] Bryson Menon MD from Last 3 Months [...] [facility] [address] [place] [address] Bryson Menon MD [address] [facility] [address] [place] [address] Health Maintenance Due Date Last [...]
--- OUTSIDE RECORDS SUMMARY | 2024-08-09 09:38 | XMS_ITS | Encounter Summary ---
Author Organization [facility] Address 100 [facility] [address] [place] [address] Phone Care Team Providers Care Road Packer Operator Name Role Phone Jacky Vallejo MD Primary Care Provider Encounter Details Date Type Department Care Team ([facility] st Contact Info) Description 08/01/2022 Telephone [facility] 100 [facility] [address] [place] [address] Bryson Menon MD [address] [facility] [address] [place] [phone] Social History Tobacco Use Types Packs/Day Years [...] Miscellaneous Notes * Telephone Encounter - Estella Rdedy - 08/02/2022 10:49 AM EST All set [...] for her. Please call him back at [phone] Thank you documented in this encounter Plan of Treatment Upcoming Encounters Date Type Department Care Team (Late st Contact Info) Description 10/03/2024 2:00 PM EDT Office Visit [facility] [address] [place] [address] Bryson Menon MD [address] [facility] [address] [place] [address] documented as of this encounter Visit Diagnoses Not on filedocumented in this encounter Care Teams Road Packer Operator Relationship Specialty Start Date End Date Jacky Vallejo MD [facility] [address] PCP - General 07/20/20 10/02/23 documented as of this encounter
--- OUTSIDE RECORDS SUMMARY | 2024-08-09 09:38 | XMS_ITS | Encounter Summary ---
Author Organization [facility] Address 100 [facility] [address] [place] [address] Phone Care Team Providers Care Mortgage Specialist Name Role Phone Jacky Vallejo MD Primary Care Provider [phone] Reason for Visit * Reason Comments Med Refill Encounter Details Date Type Department Care Team (Late Contact Info) Description 10/17/2020 Refill [facility] [address] [facility] [address] [place] [address] Bryson Menon MD [address] [facility] [address] [place] [address] Social History Tobacco Use Types [...] Visit [facility] [address] [place] [address] Bryson Menon MD [address] [facility] [address] [place] [address] documented as of this encounter Visit Diagnoses Not on filedocumented in this encounter Care Teams Mortgage Specialist Relationship Specialty Start Date End Date Jacky Vallejo MD [facility] [place] [address] PCP - General 07/20/20 10/02/23 documented as of this encounter
--- OUTSIDE RECORDS SUMMARY | 2024-08-09 09:38 | XMS_ITS | Encounter Summary ---
Author Organization [facility] Address [address] [facility] [address] [place] [address] Phone Care Team Providers Care Topology Teacher Name Role Phone Jacky Vallejo MD Primary Care Provider [phone] Encounter Details Date Type Department Care Team ([facility] Contact Info) Description 08/01/2022 Telephone [facility] 100 [address] [employer] [facility] [address] [place] [phone] Bryson Menon MD [address] [facility] [address] [place] [phone] Social History Tobacco Use Types Packs/Day Years [...] call him once done thank you. CB# [phone] documented in this encounter Plan of Treatment Upcoming Encounters Date Type Department Care Team ([facility] Contact Info) Description 10/03/2024 2:00 PM EDT Office Visit [facility] [address] [place] [address] Bryson Menon MD [address] [facility] [address] [place] [phone] documented as of this encounter Visit Diagnoses Not on filedocumented in this encounter Care Teams Topology Teacher Relationship Specialty Start Date End Date Jacky Vallejo MD [facility] [place] [address] PCP - General 07/20/20 10/02/23 documented as of this encounter
== END 2024-08-09 09:54 | disposition home or self-care (01) ==
LOC: HO.HMCC 09:11
PROVIDERS: PCP Internal Medicine; Visit Provider Internal Medicine
DX: K80.20 Calculus of gallbladder without cholecystitis without obstruction (principal); E66.01 Morbid (severe) obesity due to excess calories; Z68.36 Body mass index [BMI] 36.0-36.9, adult; N18.4 Chronic kidney disease, stage 4 (severe); R10.11 Right upper quadrant pain; R81 Glycosuria; R73.03 Prediabetes

== ENCOUNTER 2025-05-20 13:42 | Outpatient (AMB) | payer OTHER, SELFPAY ==
[2025-05-20 13:45] VITALS: BP 112/78; PULSE 90; RESP 17; TEMP 36.7; O2SAT 99; BMI 40.1
--- NOTE | 2025-05-20 13:45 | MHC.PC.OV ---
Vital Signs 05/20/25 13:45 Height 5 ft 2 in Weight 219 lb BMI 40.1 BP 112/78 Blood Pressure Location Lt brachial Position Sitting Respiration 17 Pulse 90 Pulse Source Pulse Oximeter Temp 98.0 F Temp Source Oral Pulse Oximetry (%) 99 Oxygen Delivery Method Room Air Intake Visit Reasons: R eye issues and issues after gallbladder removal Allergies No Known Allergies (No Known Allergies*) Allergy (Verified 08/07/24 13:04) Environmental Allergies Allergy (Unknown, Uncoded 11/17/23 11:21) Difficulty Breathing Mold Allergy (Unknown, Uncoded 11/17/23 11:21) Difficulty Breathing mold Allergy (Unknown, Uncoded 11/17/23 11:21) Difficulty Breathing Medication List - Last Reconciled 05/20/25 by Jacky Vallejo MD cholecalciferol (vitamin D3) 50 mcg PO DAILY omeprazole 20 mg PO DAILY potassium chloride mEq PO sodium bicarbonate 20 mg PO BID Tobacco use date assessed: 05/20/25 Dental Screening Dental Screen Date: 08/07/24 HPI R eye issues and issues after gallbladder removal HPI Details History of Present Illness The patient is a 54-year-old female presenting for evaluation of right eye irritation and post-cholecystectomy pain. Allergic Conjunctivitis: - The patient reports right eye irritation that began a few months ago after she was cleaning a condo infested with mice. - She self-diagnosed an infection at the time, noting the eye was very red and swollen, affecting both the upper and lower lids. - Current symptoms include eye irritation, mild itching, and a muscle spasm sensation, which she describes as nerves jumping. - She has been rubbing the eye and denies significant watering. - She has not seen an eye doctor for this issue or tried any allergy eye drops. - The patient also believes she needs glasses and does not recall her last eye exam. Post-cholecystectomy pain: - The patient underwent a cholecystectomy at [facility] on February 11, a little over three months ago. - She reports that after feeling better for the first two months, she has since developed worsening pain in the surgical area. - The pain is now more severe than it was before the surgery and is exacerbated by eating heavy or spicy foods. - She also notes it is uncomfortable to lie on her side. - Her post-operative follow-up appointment went well, but her symptoms have since deteriorated. Gastroesophageal Reflux Disease: - In addition to her surgical site pain, she reports discomfort in her stomach area. - She experiences occasional vomiting, which she attributes to acid reflux. - She takes omeprazole on an as-needed basis. - She denies having diarrhea. Migraine with aura: - The patient has a history of what she calls silent migraines, which present with visual disturbances such as zigzagging lines. - She used to experience them frequently but has only had one recent episode. Chronic metabolic acidosis: - The patient is under the care of a Nephrology for chronic acidosis. - She takes sodium bicarbonate three times a day for this condition. - Her last appointment with the specialist was in March, and her next is in six months. Social History: - Reports increased screen time recently. 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 Problem List - Allergic conjunctivitis - Post-cholecystectomy pain - Gastroesophageal reflux disease - Migraine with aura - Chronic metabolic acidosis - Preventative care: Vision examination referral Plan - Sent a prescription for allergy eye drops to be started for right eye itching and irritation. - Advised the patient to stop rubbing the eye. - Recommended the patient take omeprazole daily for symptoms of acid reflux. - Advised the patient to contact her surgeon for a follow-up regarding the worsening post-cholecystectomy pain. - Advised keeping a food diary to track foods that may trigger abdominal pain, suggesting fatty foods could be a cause. - A referral was placed for an ophthalmology appointment for a vision check and eye exam; [facility] was suggested as a location. - Patient has a follow-up appointment scheduled in June to re-evaluate her eye. Review of Systems - General: No fever no chills - Neurological: No headaches no dizziness - Ear nose throat: No sore throat no hearing difficulty no ear pain - Cardiovascular: No syncope, no chest pain, no palpitations - Gastrointestinal: No nausea vomiting or diarrhea Physical Exam General: No acute distress HEENT: Right eye irritation, mild redness in the lower lid, no conjunctivitis, no pain with pressure, EBKA, EOMI Neck: Supple Respiratory system: Able to talk in full sentences, no audible wheeze Cardiovascular: S1-S2 regular in rate and rhythm Gastrointestinal: no Pain with Palpation , BS + Extremities: No new findings ALGORITHM DESIGN ENGINEER: Alert awake oriented x3 motor intact Skin: Normal turgor [facility] Surgical History Hx laparoscopic cholecystectomy Social History Housing: House Patient Tobacco Use Status: Never used Tobacco e-Cigarette/Vaping Use: Never Used service: No Current occupational status: employed Current occupational exposures/hazards: No Cognitive needs: No Hearing needs: No Vision needs: No Questionnaire PHQ-9 Over the last 2 weeks, how often have you been bothered by any of the following problems? 1. Little interest or pleasure in doing things: not at all 2. Feeling down, depressed, or hopeless: not at all 3. Trouble falling or staying asleep, or sleeping too much: nearly every day 4. Feeling tired or having little energy: nearly every day 5. Poor appetite or overeating: not at all 6. Feeling bad about yourself - or that you are a failure or have let yourself or your family down: not at all 7. Trouble concentrating on things, such as reading the newspaper or watching television: not at all 8. Moving or speaking so slowly that other people could have noticed. Or the opposite - being so fidgety or restless that you have been moving around a lot more than usual: not at all 9. Thoughts that you would be better off or of hurting yourself in some way: not at all Total score: 6 Depression Screening Interpretation: Negative Depression Screening Done: Yes 00537 - PHQ-9 Billing: Yes Source: Developed by Drs. Miah Hanley, Asia Norman, Gabriel Thorpe and colleagues, with an educational reza from [employer]. Thrive Questionnaire Date Thrive assessed: 08/07/24 I am a: Patient What is your living situation today?: I have a steady place to live Within the past 12 months, did the food you bought not last and you didn't have the money to get more?: I choose not to answer this question Within the past 12 months, did you worry whether your food would run out before you got money to buy more?: I choose not to answer this question Do you have trouble paying for medicines?: I choose not to answer this question Do you have trouble getting transportation to medical appointments?: No Do you have trouble paying your heating and electricity bill?: I choose not to answer this question Do you have trouble taking care of your child, family member or friend?: I choose not to answer this question Do you have trouble with day-to-day activities such as bathing, preparing meals, shopping, managing finances, etc.?: No Are you currently unemployed and looking for a job?: I choose not to answer this question Are you interested in more education?: I choose not to answer this question Please select the resources that you would like help with: None Currently or been in a relationship where the following occur: I choose not to answer THRIVE Score: 0 JESUS-7 AMB Questionnaire JESUS-7 Date JESUS - 7 assessed: 08/07/24 Source: Developed by Drs. Miah Hanley, Asia Norman, Gabriel Thorpe and colleagues, with an educational reza from [employer]. Physical exam (Primary Care) Vital Signs: Last Vital Signs Temp 98.0 F 05/20/25 13:45 Pulse 90 05/20/25 13:45 Resp 17 05/20/25 13:45 BP 112/78 05/20/25 13:45 Pulse Ox 99 05/20/25 13:45 Oxygen Delivery Method Room Air 05/20/25 13:45 BMI result Body Mass Index 40.1 Tobacco/Smoking Status: Tobacco use Status Tobacco use date assessed 05/20/25 05/20/25 13:52 Patient Tobacco Use Status Never used Tobacco 05/20/25 13:52 e-Cigarette/Vaping Use Never Used 05/20/25 13:52 PHQ-9: PHQ-9 Score PHQ-9: Total score 6 05/20/25 13:52 Depression Screening Interpretation: Negative Thrive Assessment: Date of Thrive Assessment Date Thrive assessed 08/07/24 05/20/25 13:52 Currently or been in a relationship where the following occur: I choose not to answer Coding Level of Care Code Est Pt Level 4 (56520) Diagnoses Irritation of right eye H57.89 RUQ discomfort R10.11 Epigastric discomfort R10.13 Chronic GERD K21.9 Chronic kidney disease, stage 4 (severe) N18.4 Acidemia E87.20 History of cholecystectomy Z90.49 Additional Codes PHQ-9 - 92916 - PHQ-9 Billing: Yes ([id number]) Assessment & Plan Assessment & Plan (1) Irritation of right eye: Code(s): H57.89 - Other specified disorders of eye and adnexa Category: Medical (2) RUQ discomfort: Code(s): R10.11 - Right upper quadrant pain Category: Medical (3) Epigastric discomfort: Code(s): R10.13 - Epigastric pain Category: Medical (4) Chronic GERD: Code(s): K21.9 - Gastro-esophageal reflux disease without esophagitis Category: Medical (5) Chronic kidney disease, stage 4 (severe): Code(s): N18.4 - Chronic kidney disease, stage 4 (severe) Category: Medical (6) Acidemia: Code(s): E87.20 - Acidosis, unspecified Category: Medical (7) History of cholecystectomy: Code(s): Z90.49 - Acquired absence of other specified parts of digestive tract Category: Surgical Plan Allergic Conjunctivitis: - The patient reports right eye irritation that began a few months ago after she was cleaning a condo infested with mice. - She self-diagnosed an infection at the time, noting the eye was very red and swollen, affecting both the upper and lower lids. - Current symptoms include eye irritation, mild itching, and a muscle spasm sensation, which she describes as nerves jumping. - She has been rubbing the eye and denies significant watering. - She has not seen an eye doctor for this issue or tried any allergy eye drops. - The patient also believes she needs glasses and does not recall her last eye exam. Post-cholecystectomy pain: - The patient underwent a cholecystectomy at [facility] on February 11, a little over three months ago. - She reports that after feeling better for the first two months, she has since developed worsening pain in the surgical area. - The pain is now more severe than it was before the surgery and is exacerbated by eating heavy or spicy foods. - She also notes it is uncomfortable to lie on her side. - Her post-operative follow-up appointment went well, but her symptoms have since deteriorated. Gastroesophageal Reflux Disease: - In addition to her surgical site pain, she reports discomfort in her stomach area. - She experiences occasional vomiting, which she attributes to acid reflux. - She takes omeprazole on an as-needed basis. - She denies having diarrhea. Migraine with aura: - The patient has a history of what she calls silent migraines, which present with visual disturbances such as zigzagging lines. - She used to experience them frequently but has only had one recent episode. Chronic metabolic acidosis: - The patient is under the care of a Nephrology for chronic acidosis. - She takes sodium bicarbonate three times a day for this condition. - Her last appointment with the specialist was in March, and her next is in six months. Social History: - Reports increased screen time recently. 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 Problem List - Allergic conjunctivitis - Post-cholecystectomy pain - Gastroesophageal reflux disease - Migraine with aura - Chronic metabolic acidosis - Preventative care: Vision examination referral Plan - Sent a prescription for allergy eye drops to be started for right eye itching and irritation. - Advised the patient to stop rubbing the eye. - Recommended the patient take omeprazole daily for symptoms of acid reflux. - Advised the patient to contact her surgeon for a follow-up regarding the worsening post-cholecystectomy pain. - Advised keeping a food diary to track foods that may trigger abdominal pain, suggesting fatty foods could be a cause. - A referral was placed for an ophthalmology appointment for a vision check and eye exam; [facility] was suggested as a location. - Patient has a follow-up appointment scheduled in June to re-evaluate her eye. Orders: Referrals Ophthalmology Referral H57.89 - Other specified disorders of eye and adnexa Medications: New naphazoline-pheniramine 0.025-0.3 % (Naphcon-A) 1 drp ophthalmic (eye) BID-QID PRN 15 mL 0RF Itchy eyes 30 days
--- OUTSIDE RECORDS SUMMARY | 2025-05-20 15:20 | XMS_ITS | Patient Health Record ---
[facility] Address [address] [place] [address] Care Team Providers Care Doll Wig Maker Name Role Phone Yoni GONSALES, Asma Primary Care Provider Galina Arroyo Unavailable [phone] Allergies Allergen (clinical drug ingredient) Drug/Non Drug Allergy documented on EMR Reaction Allergy Type Onset Date Status ibuprofen Advil kidney disease Drug Allergy Ac tive Aleve kidney disease Drug Allergy Ac tive Motrin kidney disease Drug Allergy Ac tive Reason For Referral No Information Medications Medication SIG (Take, Route, Frequency, Duration) Notes Start Date End Date Status Losartan Potassium 50 MG 1 tablet Orally Once a day; Duration: 30 day(s) Active hydroCHLOROthiazide 12.5 MG 1 tablet in the morning Orally Once a day; Duration: 30 day(s) Active Loratadine 10 MG 1 tablet Orally Once a day; Duration: 30 day(s) Active Social History Tobacco Use: Social History Observation Description Date Details (start date - stop date) Never Smoker NA - NA Tobacco Use/Smoking Question Answer Notes Are you a: nonsmoker Additional Findings: Tobacco Non-User Current no n-smoker Alcohol Screen Question Answer Notes Did you have a drink containing alcohol in the p ast year? Yes Points 0 Interpretation Negative Tobacco use other than smoking: Question Answer Notes Are you an other tobacco user? No Plan Of Treatment No Information Medical (General) History Medical History History ICD Code Back,Hip,and Knee pain Broken bones Headaches/Migraines High blood pressure Keloid/Thick Scar Kidney disease Psoriasis/eczema chronic sinusitis Chicken pox Joint implants/screws Surgical History Surgery Date(Month/Year) arm 11/17/2005 section
--- OUTSIDE RECORDS SUMMARY | 2025-05-20 15:20 | XMS_ITS | Clinical Summary ---
Author Organization [facility] Address [address] [place] [address] Phone Care Team Providers Care Bar Finish Operator Name Role Phone Unknown, Unknown Primary Care Provider Arian valentin Social History Tobacco Use Types Packs/Day Years Used Date Smoking Tobacco: Never Assessed Education Answer Date Recorded Are you interested in more education? Not on [place] e 11/04/2022 Are you concerned about learning? Not on file 11/04/2022 No 11/04/2022 No 11/04/2022 Digital Access Answer Date Recorded No 12/05/2022 No 12/05/2022 No 12/05/2022 Reliable internet access at home? Not on file 12/05/2022 Device with a working camera? Not on file Comments Unknown Sex and Gender Information Value Date Recorded Sex Assigned at Not on file Legal Sex Female 9:37 PM EDT Gender Identity Not on file Sexual Orientation Not on file Plan of Treatment Health Maintenance Due Date Last Done Comments Adult Td,Tdap Booster 1968 LIPID PANEL 1968 DEPRESSION SCREENING 1980 SMOKING Hx and SMOKELESS TOB ACCO SCREENING 1981 HEPATITIS C SCREENING 1986 HIV ONE-TIME SCREENING (18-6 5 YEARS) 1986 PAP SMEAR 1989 MAMMOGRAM 2008 COLOGUARD 2013 COLONOSCOPY 2013 COLORECTAL CANCER SCREENING 2013 FIT TEST 2013 FOBT 2013 SIGMOIDOSCOPY 2013 VIRTUAL COLONOSCOPY 2013 PNEUMOCOCCAL VACCINES (50+ y ears) (1 of 1 - PCV) 2018 ZOSTER VACCINES (1 of 2) 2018 INFLUENZA VACCINE (#1) 2025 COVID-19 VACCINE ( - 2024-2 6 season) 2025 RSV VACCINE (1 - 1-dose 75+ series) 2043 HEPATITIS A VACCINES Aged Out No long er eligible based on patient's age to complete this topic HIB VACCINES Aged Out No longer eligi ble based on patient's age to complete this topic MENINGOCOCCAL VACCINES (ACWY) Aged Out No longer eligible based on patient's age to complete this topic MENINGOCOCCAL VACCINES (B) Aged Out N o longer eligible based on patient's age to complete this topic Medical Devices Not on file Insurance ([employer]) [address] [address] Care Teams Bar Finish Operator Relationship Specialty Start Date End Date Unknown, Unknown, PCP - General 07/10/17 Additional Source Comments The information contained in this document represents components of the legal health record. It is not the complete legal health record.[facility]
--- OUTSIDE RECORDS SUMMARY | 2025-05-20 15:20 | XMS_ITS | Encounter Summary ---
Author Organization [facility] Address [address] [facility] [address] [place] [address] Phone Care Team Providers Care Line Rider Name Role Phone Jacky Vallejo MD Primary Care Provider [phone] Encounter Details Date Type Department Care Team ([facility] Contact Info) Description 08/01/2022 Telephone [facility] [address] [facility] [address] [place] [phone] Bryson Menon MD [address] [facility] [address] [place] [phone] Social History Tobacco Use Types Packs/Day Years [...] call him once done thank you. CB# [phone] documented in this encounter Plan of Treatment Upcoming Encounters Date Type Department Care Team ([facility] Contact Info) Description 09/15/2025 3:15 PM EDT Office Visit [facility] [address] [place] [address] Bryson Menon MD [address] [facility] [address] [place] [phone] documented as of this encounter Visit Diagnoses Not on filedocumented in this encounter Care Teams Line Rider Relationship Specialty Start Date End Date Jacky Vallejo MD [facility] [place] [address] PCP - General 07/20/20 10/02/23 documented as of this encounter
--- OUTSIDE RECORDS SUMMARY | 2025-05-20 15:20 | XMS_ITS | Encounter Summary ---
Author Organization [facility] Address [address] [facility] [address] [place] [address] Phone Care Team Providers Care Toolsmith Name Role Phone Jacky Vallejo MD Primary Care Provider [phone] Encounter Details Date Type Department Care Team ([facility] st Contact Info) Description 08/01/2022 Telephone [facility] [address] [facility] [facility] [address] [facility] [address] [place] [address] Bryson Menon MD [address] [facility] [address] [place] [phone] Social History Tobacco Use Types Packs/Day Years [...] for her. Please call him back at [phone] Thank you documented in this encounter Plan of Treatment Upcoming Encounters Date Type Department Care Team (Late st Contact Info) Description 09/15/2025 3:15 PM EDT Office Visit [facility] [address] [place] [address] Bryson Menon MD [address] [facility] [address] [place] [address] documented as of this encounter Visit Diagnoses Not on filedocumented in this encounter Care Teams Toolsmith Relationship Specialty Start Date End Date Jacky Vallejo MD [facility] [place] [address] PCP - General 07/20/20 10/02/23 documented as of this encounter
--- OUTSIDE RECORDS SUMMARY | 2025-05-20 15:20 | XMS_ITS | Clinical Summary ---
Author Organization [facility]. 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 180 packet 3 07/04/2024 Active Vitamin D, Ergocalciferol, 50 MCG (1999) capsule TAKE 1 CAPSULE BY MOUTH ONCE WEEKLY 90 capsule 1 10/04/2024 Active sodium bicarbonate 650 MG tablet Take 2 tablets (1,300 mg total) by mouth in the morning and 2 tablets (1,300 mg total) in the evening and 2 tablets (1,300 mg total) before bedtime. 540 tablet 3 03/12/2025 Active Active Problems Problem Noted Date Diagnosed Date Prediabetes 03/20/2025 Acute kidney injury due to trauma 08/09/2022 Gastroesophageal reflux disease 08/09/2022 Chronic kidney disease, stage 4 (severe) 021 Stage 3b chronic kidney disease 12/18/2020 Essential hypertension 12/18/2020 Encounters Date Type Department Care Team Description 03/20/2025 3:15 PM EDT Office Visit [facility] [address] [place] [address] Bryson Menon MD Stage 3b chronic kidney disease (HCC) (Primary Dx); Essential hypertension 03/19/2025 Orders Only [facility] [address] [address] Bryson Menon MD 03/12/2025 Refill [facility] [address] [address] Laurie Denny MA 03/11/2025 Refill [facility] [address] [place] [address] Bryson Menon MD 03/08/2025 Refill [facility] [address] [place] [address] Bryson Menon MD 03/05/2025 Orders Only [facility] [address] [place] [address] Bryson Menon MD Chronic kidney disease, stage 4 (severe) (HCC); Persistent proteinuria from Last 3 Months Family History Medical [...] Sign Reading Time Taken Comments Blood Pressure 118/66 03/20/2025 3:25 PM EDT Pulse 93 03/07/2024 3:13 PM EDT Temperature - - Respiratory Rate - - Oxygen Saturation 98% 03/20/2025 3:25 PM EDT Inhaled Oxygen Concentration - - Weight 96 kg (211 lb 9.6 oz) 03/20/2025 3:25 PM EDT Height 157.5 cm (5' 2 ) 03/22/2021 4:30 PM EDT Body Mass Index 38.7 03/22/2021 4:30 PM EDT Plan of Treatment Upcoming Encounters Date Type Department Care Team (Late st Contact Info) Description 09/15/2025 3:15 PM EDT Office Visit [facility] [address] [place] [address] [place] [address] Bryson Menon MD [address] [facility] [address] [place] [address] Health Maintenance Due Date Last Done Comments Breast Cancer Screening 1970 Hepatitis B Vaccine (1 of 3 - 19+ 3-dose series) 06/07 Pneumococcal Vaccine: 50+ Years (1 of 2 - PCV) 987 Colorectal Cancer Screening: Annual FOBT 2017 Colorectal Cancer Screening: Colonoscopy 2017 Colorectal Cancer Screening: Sigmoidoscopy 2017 Influenza Vaccine (#1) 2025 Procedures Procedure Name Priority Date/Time Associated Diagnosis Comments SPECIMEN STATUS REPORT Routine 03/19/2025 9:48 AM EDT PTH, INTACT Routine 03/19/2025 9:48 AM EDT MAGNESIUM Routine 03/19/2025 9:48 AM EDT VITAMIN D 25 HYDROXY Routine 03/19/2025 9:48 AM EDT URINE ALBUMIN / CREATININE RATIO Routine 03/19/2025 9:48 AM EDT PROTEIN / CREATININE RATIO, URINE Routine 03/19/2025 9:48 AM EDT RENAL FUNCTION PANEL Routine 03/19/2025 9:48 AM EDT URINALYSIS WITH MICROSCOPIC Routine 03/19/2025 9:48 AM EDT CBC DIFF AMBIGUOUS DEFAULT - DO NOT USE Routine 03/19/2025 9:48 AM EDT MICROSCOPIC EXAMINATION - DO NOT USE Routine 03/19/2025 9:48 AM EDT from Last 3 Months Results * SPECIMEN STATUS REPORT (03/19/2025 9:48 AM EDT) Specimen Status Comment [facility] [place] Comment: Ambig Abbrev RP10 Default Ambig Abbrev RP10 Default A hand-written panel/profile was received from your office. In accordance with the [facility] Ambiguous Test Code Policy dated January 2003, we have completed your order by using the closest currently or formerly recognized AMA panel. We have assigned Renal Panel (10), Test Code #020511 to this request. If this is not the testing you wished to receive on this specimen, please contact the [facility] Client Inquiry/Technical Services Department to clarify the test order. We appreciate your business. 03/19/2025 9:48 AM EDT 03/19/2025 us Bryson Menon MD LAB BLOOD ORDERABLES Final Re sult [facility] [place] [address] [place] [address] * (ABNORMAL) Microscopic Examination (03/19/2025 9:48 AM EDT) WBC, Urine 0-5 0 - 5 /hpf [facility] [place] RBC, Urine None seen 0 - 2 /hpf [facility] [place] Squamous Epithelial, Urine 0-10 0 - 10 /hpf [facility] [place] Casts Present(A) None seen /lpf [facility] [place] Cast Type Granular casts(A) N/A [facility] [place] Bacteria, Urine Few None seen/Few [facility] [place] 03/19/2025 9:48 AM EDT 03/19/2025 us Bryson Menon MD LAB MICROBIOLOGY - GENERAL OR DERABLES Final Result [facility] [place] [address] [place] [address] * (ABNORMAL) CBC Diff Ambiguous Default (03/19/2025 9:48 AM EDT) WBC 8.0 3.4 - 10.8 x10E3/uL [facility] [place] RBC 5.64(H) 3.77 - 5.28 x10E6/uL [facility] [place] Hemoglobin 14.8 11.1 - 15.9 g/dL [facility] [place] Hematocrit 47.2(H) 34.0 - 46.6 % [facility] [place] MCV 84 79 - 97 fL [facility] MCH 26.2(L) 26.6 - 33.0 pg [facility] [place] MCHC 31.4(L) 31.5 - 35.7 g/dL [facility] [place] RDW 16.5(H) 11.7 - 15.4 % [facility] [place] Platelets 283 150 - 450 x10E3/uL [facility] Neutrophils Relative 54 Not Estab. % [facility] Lymphocytes Relative 32 Not Estab. % [facility] Monocytes 9 Not Estab. % [facility] Eosinophils Relative 5 Not Estab. % [facility] Basophils Relative 0 Not Estab. % [facility] [place] Neutrophils Absolute 4.3 1.4 - 7.0 x10E3/uL [facility] Lymphocytes Absolute 2.5 0.7 - 3.1 x10E3/uL [facility] Monocytes Absolute 0.7 0.1 - 0.9 x10E3/uL [facility] [place] Eosinophils Absolute 0.4 0.0 - 0.4 x10E3/uL [facility] [place] Basophils Absolute 0.0 0.0 - 0.2 x10E3/uL [facility] [place] Immature Granulocytes 0 Not Estab. % [facility] Immature Grans (Absolute) 0.0 0.0 - 0.1 x10E3/uL [facility] [place] Comment: A hand-written panel/profile was received from your office. In accordance with the [facility] Ambiguous Test Code Policy dated January 2003, we have assigned CBC with Differential/Platelet, Test Code #671479 to this request. If this is not the testing you wished to receive on this specimen, please contact the [facility] Client [facility]quiry/ Technical Services Department to clarify the test order. We appreciate your business. 03/19/2025 9:48 AM EDT 03/19/2025 us Bryson Menon MD LAB BLOOD ORDERABLES Final Re sult [facility] [place] [address] [place] [address] * (ABNORMAL) Protein, Total, Random Urine w/Creatinine (Protein/Creat Ratio) (03/19/2025 9:48 AM EDT) Creatinine, Ur 96.1 Not Estab. mg/dL [facility] [place] Protein, Ur 205.5 Not Estab. mg/dL [facility] Comment: Results confirmed on dilution. Urine Protein/Creati nine Ratio 2,138(H) 0 - 200 mg/g creat [facility] [place] 03/19/2025 9:48 AM EDT 03/19/2025 Bryson Menon MD LAB URINE ORDERABLES Final Re sult Performing Organization Address City/[facility]/ZIP Co de Phone Number [employer] [facility] [place] [address] [place] [phone] * (ABNORMAL) Urine Albumin / Creatinine Ratio (03/19/2025 9:48 AM EDT) Albumin, Urine 305.4 Not Estab. ug/mL [facility] [place] Albumin/Creatin ine Ratio 318(H) 0 - 29 mg/g creat [facility] [place] Comment: Normal: 0 - 29 Moderately increased: 30 - 300 Severely increased: >300 03/19/2025 9:48 AM EDT 03/19/2025 Bryson Menon MD LAB URINE ORDERABLES Final Re sult Performing Organization Address [facility] de Phone Number [employer] [facility] [employer] [place] [address] [place] [phone] * (ABNORMAL) Vitamin D 25 Hydroxy (03/19/2025 9:48 AM EDT) Vitamin D, 25-OH, Total 19.1(L) 30.0 - 100.0 ng/mL [facility] [place] Comment: Vitamin D deficiency has been defined by the [place] of Medicine and an Endocrine Society practice guideline as a level of serum 25-OH vitamin D less than 20 ng/mL (1,2). The Endocrine Society went on to further define vitamin D insufficiency as a level between 21 and 29 ng/mL (2). 1. IOM ([place] of Medicine). 2010. Dietary reference intakes for calcium and D. [place]: The National Academies Press. 2. Ching MF, Mckinley NC, Gomez FRANKS, et al. Evaluation, treatment, and prevention of vitamin D deficiency: an Endocrine Society clinical practice guideline. JCEM. 2010; 96(7):1911-30. 03/19/2025 9:48 AM EDT 03/19/2025 us Bryson Menon MD LAB BLOOD ORDERABLES Final Re sult [facility] [place] [address] [place] [address] * (ABNORMAL) Urinalysis with microscopic (03/19/2025 9:48 AM EDT) Specific Elizabeth, Urine 1.021 1.005 - 1.030 [facility] [place] pH Urine 6.0 5.0 - 7.5 [facility] [place] Color, Urine Yellow Yellow [facility] [place] Appearance Urine Cloudy(A) Clear [facility] [place] [phone] WBC Esterase Urine Negative Negative [facility] [place] Protein, Ur 3+(A) Negative/Tra ce [facility] [place] [phone] Glucose, Ur 2+(A) Negative [facility] [place] Ketones, Urine Negative Negative [facility] [place] Blood Urine 1+(A) Negative [facility] [place] [phone] Bilirubin Urine Negative Negative [facility] [place] Urobilinogen Urine 0.2 0.2 - 1.0 mg/dL [facility] [place] Nitrite, Urine Negative Negative [facility] [place] Microscopic Examination See below: [facility] [place] Comment:Microscopic was brady cated and was performed. 03/19/2025 9:48 AM EDT 03/19/2025 Bryson Menon MD LAB URINE ORDERABLES Final Re sult Performing Organization Address City/[facility]/ZIP Co de Phone Number [facility] [place] [address] [place] [address] * (ABNORMAL) PTH, Intact (03/19/2025 9:48 AM EDT) PTH 100(H) 15 - 65 pg/mL [facility] [place] 03/19/2025 9:48 AM EDT 03/19/2025 Bryson Menon MD LAB BLOOD ORDERABLES Final Re sult Performing Organization Address [facility] de Phone Number [facility] [place] [address] [place] [address] * (ABNORMAL) Magnesium (03/19/2025 9:48 AM EDT) Magnesium 2.6(H) 1.6 - 2.3 mg/dL [facility] [place] 03/19/2025 9:48 AM EDT 03/19/2025 Bryson Menon MD LAB BLOOD ORDERABLES Final Re sult Performing Organization Address [facility] Co de Phone Number [facility] [place] [address] [place] [address] * (ABNORMAL) Renal Function Panel (03/19/2025 9:48 AM EDT) Glucose 83 70 - 99 mg/dL [facility] [place] BUN 17 6 - 24 mg/dL [facility] [place] Creatinine 1.77(H) 0.57 - 1.00 mg/dL [facility] [place] eGFR CKD-EPI CR 2020 33(L) >59 mL/min/1.7 3 [facility] [place] BUN/Creatinine Ratio 10 9 - 23 [facility] [place] Sodium 142 134 - 144 mmol/L [facility] [place] Potassium 4.2 3.5 - 5.2 mmol/L [facility] [place] Chloride 113(H) 96 - 106 mmol/L [facility] [place] Bicarbonate (CO2) 15(L) 20 - 29 mmol/L [facility] [place] Comment:Verified by repeat analysis Calcium 9.1 8.7 - 10.2 mg/dL [facility] [place] Albumin 4.4 3.8 - 4.9 g/dL [facility] [place] Phosphorus 2.4(L) 3.0 - 4.3 mg/dL [facility] [place] 03/19/2025 9:48 AM EDT 03/19/2025 us Bryson Menon MD LAB BLOOD ORDERABLES Final Re sult [facility] [place] [address] [place] [address] from Last 3 Months Insurance [facility]
--- OUTSIDE RECORDS SUMMARY | 2025-05-20 15:20 | XMS_ITS | Encounter Summary ---
Author Organization [facility] Address [address] [facility] [address] [place] [address] Phone Care Team Providers Care Assessment Analyst Name Role Phone Jacky Vallejo MD Primary Care Provider [phone] Reason for Visit * Reason Comments Med Refill Encounter Details Date Type Department Care Team (Late Contact Info) Description 10/17/2020 Refill [facility] [address] [facility] [address] [place] [phone] Bryson Menon MD [address] [facility] [address] [place] [address] Social History Tobacco Use Types [...] Department Care Team (Late Contact Info) Description 09/15/2025 3:15 PM EDT Office Visit [facility] [address] [place] [address] Bryson Menon MD [address] [facility] [address] [place] [address] documented as of this encounter Visit Diagnoses Not on filedocumented in this encounter Care Teams Assessment Analyst Relationship Specialty Start Date End Date Jacky Vallejo MD [facility] [place] [address] PCP - General 07/20/20 10/02/23 documented as of this encounter
== END 2025-05-20 14:12 | disposition home or self-care (01) ==
LOC: HO.HMCC 13:42
PROVIDERS: PCP Internal Medicine; Visit Provider Internal Medicine
DX: H57.89 Other specified disorders of eye and adnexa (principal); R10.11 Right upper quadrant pain; R10.13 Epigastric pain; K21.9 Gastro-esophageal reflux disease without esophagitis; N18.4 Chronic kidney disease, stage 4 (severe); E87.20 Acidosis, unspecified; Z90.49 Acquired absence of other specified parts of digestive tract

== ENCOUNTER → 2025-05-20 13:42 | Outpatient (BNVA) | payer OTHER, SELFPAY | PROVIDERS: PCP Internal Medicine; Visit Provider Internal Medicine | DX: H57.89 Other specified disorders of eye and adnexa (principal); R10.11 Right upper quadrant pain; R10.13 Epigastric pain; K21.9 Gastro-esophageal reflux disease without esophagitis; N18.4 Chronic kidney disease, stage 4 (severe); E87.20 Acidosis, unspecified; Z90.49 Acquired absence of other specified parts of digestive tract | CPT/HCPCS: 96127 ==